=== PATIENT | female | born 1950 | race Caucasian/White ===

== ENCOUNTER 2020-04-28 10:56 | Emergency (ER) | payer OTHER ==
[2020-04-28] MEDS ORDERED: KETOROLAC 30 MG/ML INJ ONE (11:23)
[2020-04-28] MEDS ORDERED: CEFTRIAXONE/SWI 1gm 1 GM/10 ML SYR ONE (11:23)
[2020-04-28] MEDS ORDERED: MORPHINE 4 MG/ML SYR ONE (11:23)
[2020-04-28] MEDS ORDERED: ONDANSETRON 4 MG/2 ML VIAL ONE (11:23)
[2020-04-28] MEDS ORDERED: NA CHLORIDE 0.9% 1,000 ML ONE (11:23)
[2020-04-28 11:46] LABS: Absolute Lymphocytes (CBC) 1.3 K/uL (0.7-4.9); Basophils % 1.2 % (0-1.3); Hematocrit 31.7 % (36.0-45.0); Lymphocytes % 12.3 % (15.3-44.8); RBC Red Blood Cell Count 4.58 M/uL (3.86-4.86)
--- NOTE | 2020-04-28 11:57 | RAD REPORT ---
EXAM DESCRIPTION: CT - Stone Protocol - 04/28/2020 11:34 am CLINICAL HISTORY: Flank pain. Abd pain;Flank pain COMPARISON: No comparisons TECHNIQUE: Axial images were obtained without oral or IV contrast. Lack of contrast limits solid org an and vascular assessment. The [id number] spans the entirety of the system partially obscuring uppermost abdomen and lung bases. Coronal reformatted images were obtained and reviewed. All CT scans are performed using dose optimization technique as appropriate and may include automated exposure control or mA/KV adjustment according to patient size. FINDINGS: The lower lung soria are clear. 3.6 cm cyst is seen in the right lobe liver. No aggressive liver lesion or biliary dilatation. The sp florentin, pancreas, adrenal glands and left kidney are unremarkable. Right renal calculi are present with out hydronephrosis. The largest right-sided calculus measures 7 mm. Large ventral hernia is present containing large and small bowel without evidence of obstruction. No free air or abscess. No bowel obstruction. Sigmoid diverticulosis coli is noted without diverticul itis. The appendix is not identified as a discrete structure, however, no secondary findings of appen dicitis are identified. Lumbosacral spondylosis is present. IMPRESSION: Several right renal calculi are present without hydronephrosis. Large ventral hernia containing small and large bowel loops without evidence obstruction.
[2020-04-28 12:01] LABS: Urine Blood TRACE (NEG); Urine Glucose NEGATIVE (NEG); Urine Protein NEGATIVE (NEG); Urine Specific Gravity 1.025 (1.005-1.030)
[2020-04-28 12:02] LABS: ALT/SGPT 11 U/L (12-78); AST/SGOT 11 U/L (15-37); Albumin 3.1 g/dL (3.4-5.0); Alkaline Phosphatase 144 U/L (45-117); BUN Blood Urea Nitrogen 12 mg/dL (7-18); Bicarbonate 25 mmol/L (21-32); Bilirubin Direct < 0.1 mg/dL (0-0.2); Bilirubin Total 0.3 mg/dL (0.2-1.0); Glucose Level 111 mg/dL (74-106); Lipase 115 U/L (73-393); Potassium 3.3 mmol/L (3.5-5.1); Protein, Total 7.1 g/dL (6.4-8.2); Sodium Level 139 mmol/L (136-145)
[2020-04-28 13:18] LABS: Anisocytosis 1+; Blood Morphology Comment NOTED (NOT SEEN); Hypochromasia 1+; Platelet Estimate INCR; Urine White Blood Cell Casts OK
--- NOTE | 2020-04-28 13:40 | EDPHYS ---
Physician Documentation [facility] Name: Sejal Mcnally Age: 69 yrs Sex: Female : 1950 Arrival Date: 04/28/2020 Time: 11:00 Bed 5 Private MD: BARRY Physician Darrick Cage HPI: 04/28 11:06 This 69 yrs old Female presents to ER via Unassigned with complaints of right carrington flank pain. 11:06 The patient presents with abdominal pain right lower quadrant, abdominal distention in carrington the upper abdomen, in the lower abdomen. Onset: The symptoms/episode began/occurred this morning. The patient complains of pain in the right mid back and right low back. The pain radiates to the right mid back and right low back. Onset: The symptoms/episode began/occurred just prior to arrival, this morning. Modifying factors: The symptoms are alleviated by nothing. the symptoms are aggravated by nothing. Associated signs and symptoms: The patient has no apparent associated signs or symptoms. The symptoms radiate to the right flank. Associated signs and symptoms: none. Historical: - Allergies: 11:08 PENICILLINS; bp 11:08 Iodine; bp 11:08 Sulfa (Sulfonamide Antibiotics); bp - Home Meds: 11:08 None [Active]; bp - PMHx: 11:08 Multiple Sclerosis; bp - Immunization history:: Adult Immunizations up to date. - Social history:: Smoking status: unknown. - Family history:: not pertinent. ROS: 11:07 Constitutional: Negative for fever, chills, and weight loss, Eyes: Negative for injury, carrington pain, redness, and discharge, ENT: Negative for injury, pain, and discharge, Neck: Negative for injury, pain, and swelling, Cardiovascular: Negative for chest pain, palpitations, and edema, Respiratory: Negative for shortness of breath, cough, wheezing, and pleuritic chest pain, : Negative for injury, bleeding, discharge, and swelling, MS/Extremity: Negative for injury and deformity, Skin: Negative for injury, rash, and discoloration, Neuro: Negative for headache, weakness, numbness, tingling, and seizure, Psych: Negative for depression, anxiety, suicide ideation, homicidal ideation, and hallucinations, Allergy/Immunology: Negative for hives, rash, and allergies, Endocrine: Negative for neck swelling, polydipsia, polyuria, polyphagia, and marked weight changes. 11:07 Abdomen/GI: Positive for abdominal pain, nausea. 11:07 Back: Positive for flank pain, on the right. Exam: 11:07 Constitutional: This is a well developed, well nourished patient who is awake, alert, carrington and in no acute distress. Head/Face: Normocephalic, atraumatic. Eyes: Pupils equal round and reactive to light, extra-ocular motions intact. Lids and lashes normal. Conjunctiva and sclera are non-icteric and not injected. Cornea within normal limits. Periorbital areas with no swelling, redness, or edema. ENT: Nares patent. No nasal discharge, no septal abnormalities noted. Tympanic membranes are normal and external auditory canals are clear. Oropharynx with no redness, swelling, or masses, exudates, or evidence of obstruction, uvula midline. Mucous membranes moist. Neck: Trachea midline, no thyromegaly or masses palpated, and no cervical lymphadenopathy. Supple, full range of motion without nuchal rigidity, or vertebral point tenderness. No Meningismus. Chest/axilla: Normal chest wall appearance and motion. Nontender with no deformity. No lesions are appreciated. Cardiovascular: Regular rate and rhythm with a normal S1 and S2. No gallops, murmurs, or rubs. Normal PMI, no JVD. No pulse deficits. Respiratory: Lungs have equal breath sounds bilaterally, clear to auscultation and percussion. No rales, rhonchi or wheezes noted. No increased work of breathing, no retractions or nasal flaring. Abdomen/GI: Soft, non-tender, with normal bowel sounds. No distension or tympany. No guarding or rebound. No evidence of tenderness throughout. Back: No spinal tenderness. No costovertebral tenderness. Full range of motion. Skin: Warm, dry with normal turgor. Normal color with no rashes, no lesions, and no evidence of cellulitis. MS/ Extremity: Pulses equal, no cyanosis. Neurovascular intact. Full, normal range of motion. Neuro: Awake and alert, GCS 15, oriented to person, place, time, and situation. Cranial nerves II-XII grossly intact. Motor strength 5/5 in all extremities. Sensory grossly intact. Cerebellar exam normal. Normal gait. Psych: Awake, alert, with orientation to person, place and time. Behavior, mood, and affect are within normal limits. 11:07 Abdomen/GI: Inspection: distension, very large ventral hernia, no pain, soft. Vital Signs: 11:00 BP 110 / 60; Pulse 68; Resp 17; Temp 98.2; Pulse Ox 100% ; bp 12:49 BP 118 / 58; Pulse 84; Resp 16; Pulse Ox 98% ; bp 14:00 BP 121 / 61; Pulse 75; Resp 16; Temp 98.5; Pulse Ox 99% ; bp MDM: 11:08 Data reviewed: vital signs, nurses notes, lab test result(s), radiologic studies, CT carrington scan. 11:21 Patient medically screened. [facility] 13:34 Differential diagnosis: nephrolithiasis, pancreatitis, bowel obstruction, Mesenteric carrington ischemia or infarction, non-specific abd pain, Peptic Ulcer Disease, Ureterolithiasis. 04/28 11:05 Order name: Basic Metabolic Panel; Complete Time: 13:18 [facility] 04/28 11:05 Order name: CBC with Diff; Complete Time: 13:21 [facility] 04/28 11:05 Order name: Hepatic Function; Complete Time: 13:18 [facility] 04/28 11:05 Order name: Lipase; Complete Time: 13:18 [facility] 04/28 11:05 Order name: Urine Culture [facility] 04/28 11:32 Order name: Urine Dipstick--Ancillary (enter results); Complete Time: 13:18 04/28 11:05 Order name: IV Saline Lock; Complete Time: 11:29 [facility] 04/28 11:05 Order name: CT Stone Protocol; Complete Time: 13:18 [facility] 04/28 13:18 Order name: CBC Smear Scan; Complete Time: 13:21 [facility] 04/28 11:05 Order name: Labs collected and sent; Complete Time: 11:29 [facility] 04/28 11:05 Order name: Urine Dipstick-Ancillary (obtain specimen); Complete Time: 11:40 [facility] 04/28 13:26 Order name: PO challenge: orange juice; Complete Time: 13:26 [facility] Administered Medications: 11:25 Drug: NS 0.9% 1000 ml Route: IV; Rate: 1 bolus; Site: right wrist; bp 14:32 Follow up: IV Status: Infusion continued; IV Intake: 1000ml bp 11:25 Drug: TORadol 30 mg Route: IVP; Site: right wrist; bp 14:32 Follow up: Response: Pain is decreased bp 11:25 Drug: morphine 4 mg Route: IVP; Site: right wrist; bp 14:32 Follow up: Response: Pain is decreased bp 11:25 Drug: Zofran (Ondansetron) 4 mg Route: IVP; Site: right wrist; bp 14:31 Follow up: Response: No adverse reaction bp 11:25 Drug: Rocephin 1 grams Route: IV; Rate: per protocol; Site: right wrist; bp 14:31 Follow up: IV Status: Completed infusion; IV Intake: 20ml bp Disposition: 04/28/20 13:40 Discharged to Home. Impression: Ventral hernia without obstruction or gangrene, Low back pain, Multiple sclerosis, Obesity, unspecified, Anemia, unspecified. - Condition is Stable. - Discharge Instructions: Anemia, Nonspecific, Back Pain, Adult, Iron-Rich Diet, Hernia, Adult, Musculoskeletal Pain, Obesity, Adult, Back Pain, Adult, [id number], Multiple Sclerosis, Iron Deficiency Anemia, Adult, Reyo-ta-Wwen. - Prescriptions for Tylenol- Codeine #3 300-30 mg Oral Tablet - take 2 tablets by ORAL route every 6 hours As needed; 20 tablet. Motrin IB 200 mg Oral Tablet - take 1 tablet by ORAL route every 6 hours As needed as needed with food; 40 tablet. Cyclobenzaprine 5 mg Oral Tablet - take 1 tablet by ORAL route 3 times per day As needed; 15 tablet. - Medication Reconciliation Form, Thank You Letter, Antibiotic Education, Prescription Opioid Use form. - Follow up: Private Physician; When: 2 - 3 days; Reason: Recheck today's complaints, Continuance of care, Re-evaluation by your physician. Follow up: Donavan Galeano MD; When: 2 - 3 days; Reason: Recheck today's complaints, Re-evaluation by your physician. - Problem is new. - Symptoms have improved. Signatures: Dispatcher [employer] EDDarrick Freitas MD MD cha Peltier, Brian, RN RN bp Corrections: (The following items were deleted from the chart) 13:44 13:40 04/28/2020 13:40 Discharged to Home. Impression: Ventral hernia without carrington obstruction or gangrene; Low back pain; Multiple sclerosis; Obesity, unspecified; Anemia, unspecified. Condition is Stable. Forms are Medication Reconciliation Form, Thank You Letter, Antibiotic Education, Prescription Opioid Use. Follow up: Private Physician; When: 2 - 3 days; Reason: Recheck today's complaints, Continuance of care, Re-evaluation by your physician. Problem is new. Symptoms have improved. carrington 14:33 13:44 04/28/2020 13:40 Discharged to Home. Impression: Ventral hernia without bp obstruction or gangrene; Low back pain; Multiple sclerosis; Obesity, unspecified; Anemia, unspecified. Condition is Stable. Discharge Instructions: Anemia, Nonspecific, Back Pain, Adult, Hernia, Adult, Musculoskeletal Pain, Obesity, Adult, Back Pain, Adult, [id number], Multiple Sclerosis. Prescriptions for Tylenol-Codeine #3 300-30 mg Oral Tablet - take 2 tablets by ORAL route every 6 hours As needed; 20 tablet, Motrin IB 200 mg Oral Tablet - take 1 tablet by ORAL route every 6 hours As needed as needed with food; 40 tablet, Cyclobenzaprine 5 mg Oral Tablet - take 1 tablet by ORAL route 3 times per day As needed; 15 tablet. and Forms are Medication Reconciliation Form, Thank You Letter, Antibiotic Education, Prescription Opioid Use. Follow up: Private Physician; When: 2 - 3 days; Reason: Recheck today's complaints, Continuance of care, Re-evaluation by your physician. Follow up: Donavan Galeano; When: 2 - 3 days; Reason: Recheck today's complaints, Re-evaluation by your physician. Problem is new. Symptoms have improved. [facility]
--- NOTE | 2020-04-28 13:40 | ER ---
Nurse's Notes [facility] Name: Sejal Mcnally Age: 69 yrs Sex: Female : 1950 Arrival Date: 04/28/2020 Time: 11:00 Bed 5 Private MD: Diagnosis: Ventral hernia without obstruction or gangrene;Low back pain;Multiple sclerosis;Obesity, unspecified;Anemia, unspecified Presentation: 04/28 11:00 Chief complaint: EMS states: SPONTANEOUS R FLANK PAIN SINCE Y/D, DENIES TRAUMA OR bp DYSURIA. Coronavirus screen: At this time, the client does not indicate any symptoms associated with coronavirus-19. Ebola Screen: No symptoms or risks identified at this time. Initial Sepsis Screen: Does the patient meet any 2 criteria? No. Patient's initial sepsis screen is negative. Does the patient have a suspected source of infection? No. Patient's initial sepsis screen is negative. Risk Assessment: Do you want to hurt yourself or someone else? Patient reports no desire to harm self or others. Onset of symptoms is unknown. 11:00 Method Of Arrival: EMS: [facility] bp 11:00 Acuity: NADINE 3 bp Triage Assessment: 11:08 General: Appears distressed, uncomfortable, obese, Behavior is appropriate for age, bp agitated, anxious, crying. Pain: Complains of pain in right low back and right mid back. EENT: No deficits noted. Neuro: No deficits noted. Cardiovascular: No deficits noted. Respiratory: No deficits noted. GI: No signs and/or symptoms were reported involving the gastrointestinal system. : Reports pain in right flank(s). Derm: No deficits noted. Musculoskeletal: No deficits noted. Historical: - Allergies: 11:08 PENICILLINS; bp 11:08 Iodine; bp 11:08 Sulfa (Sulfonamide Antibiotics); bp - Home Meds: 11:08 None [Active]; bp - PMHx: 11:08 Multiple Sclerosis; bp - Immunization history:: Adult Immunizations up to date. - Social history:: Smoking status: unknown. - Family history:: not pertinent. Screenin:09 Abuse screen: Denies threats or abuse. Denies injuries from another. Nutritional bp screening: No deficits noted. Tuberculosis screening: No symptoms or risk factors identified. Fall Risk None identified. Assessment: 11: General: SEE TRIAGE NOTE. bp 12:49 Reassessment: PT RETURNED FROM CT. ALL CURRENT ORDERS COMPLETED, RESULTS PENDING. bp 14:24 Reassessment: PT D/C HOME VIA W/C, DX WITH MS AND LUMBAR PAIN. bp Vital Signs: 11:00 BP 110 / 60; Pulse 68; Resp 17; Temp 98.2; Pulse Ox 100% ; bp 12:49 BP 118 / 58; Pulse 84; Resp 16; Pulse Ox 98% ; bp 14:00 BP 121 / 61; Pulse 75; Resp 16; Temp 98.5; Pulse Ox 99% ; bp ED Course: 11:00 Patient arrived in ED. carrington 11:01 Darrick Cage MD is Attending Physician. carrington 11:06 Esteban Tomas, RICARDO is Primary Nurse. bp 11:07 Triage completed. bp 11:08 Arm band placed on. bp 11:09 Patient has correct armband on for positive identification. Bed in low position. Call bp light in reach. Side rails up X2. 11:25 Inserted saline lock: 22 gauge in right wrist, using aseptic technique. Blood collected.bp 11:33 CT Stone Protocol In Process Unspecified. EDMS 13:44 Donavan Galeano MD is Referral Physician. carrington 14:24 No provider procedures requiring assistance completed. IV discontinued, bleeding bp controlled, No redness/swelling at site. Pressure dressing applied. Administered Medications: 11:25 Drug: NS 0.9% 1000 ml Route: IV; Rate: 1 bolus; Site: right wrist; bp 14:32 Follow up: IV Status: Infusion continued; IV Intake: 1000ml bp 11:25 Drug: TORadol 30 mg Route: IVP; Site: right wrist; bp 14:32 Follow up: Response: Pain is decreased bp 11:25 Drug: morphine 4 mg Route: IVP; Site: right wrist; bp 14:32 Follow up: Response: Pain is decreased bp 11:25 Drug: Zofran (Ondansetron) 4 mg Route: IVP; Site: right wrist; bp 14:31 Follow up: Response: No adverse reaction bp 11:25 Drug: Rocephin 1 grams Route: IV; Rate: per protocol; Site: right wrist; bp 14:31 Follow up: IV Status: Completed infusion; IV Intake: 20ml bp Intake: 14:31 IV: 20ml; Total: 20ml. bp 14:32 IV: 1000ml; Total: 1020ml. bp Outcome: 13:40 Discharge ordered by . carrington 14:24 Discharged to home via wheelchair. bp 14:24 Condition: stable 14:24 Discharge instructions given to patient, Instructed on discharge instructions, follow up and referral plans. medication usage, Demonstrated understanding of instructions, follow-up care, medications, Prescriptions given X 2. 14:33 Patient left the ED. bp Signatures: Dispatcher [employer] EDWY Darrick Cage MD MD cha Peltier, Brian, RN RN bp
[2020-04-28 14:46] VITALS: BP 121/61; TEMP 98.5; O2SAT 99
== END 2020-04-28 14:33 | disposition home or self-care (01) ==
LOC: ER 10:56
DX: K43.9 Ventral hernia without obstruction or gangrene (principal); E66.9 Obesity, unspecified; D64.9 Anemia, unspecified; G35 Multiple sclerosis; Z88.0 Allergy status to penicillin; Z88.2 Allergy status to sulfonamides; Z91.048 Other nonmedicinal substance allergy status
CPT/HCPCS: 87088; 85025; 87086; 80048; 36415; 80076; 81003; 83690; 76377; 74176; J0696; J7030; J2405; 96365; 96366; 96375; 99284

== ENCOUNTER 2022-10-11 16:37 | Emergency (ER) | payer OTHER ==
--- NOTE | 2022-10-11 18:05 | RAD REPORT ---
EXAM DESCRIPTION: RAD - Chest Single View - 10/11/2022 5:43 pm CLINICAL HISTORY: Cough COMPARISON: Stone Protocol dated 04/28/2020 FINDINGS: Lines: None. Lungs: No evidence of edema or pneumonia. Pleural: No significant pleural effusions or pneumothorax. Cardiac: The heart size is within normal limits. Mediastinum: Within normal limits. Bones: No acute fractures. Remote left-sided rib fractures. Other: None IMPRESSION: No acute cardiopulmonary disease.
--- NOTE | 2022-10-11 18:18 | ER ---
Nurse's Notes [facility] Name: Sejal Mcnally Age: 72 yrs Sex: Female : 1950 Arrival Date: 10/11/2022 Time: 16:38 Bed 11 Private MD: CHRISTINA ALICEA Diagnosis: Allergic rhinitis, unspecified Presentation: 10/11 16:49 Chief complaint: Patient states: runny nose, slight cough, itchy eyes that began 3 days aa5 ago. Denies SOB, reports body aches. Coronavirus screen: cough unrelated to allergies, runny nose. Ebola Screen: Patient denies travel to an Ebola-affected area in the 21 days before illness onset. Initial Sepsis Screen: Does the patient meet any 2 criteria? HR > 90 bpm. Does the patient have a suspected source of infection? No. Patient's initial sepsis screen is negative. Risk Assessment: Do you want to hurt yourself or someone else? Patient reports no desire to harm self or others. Onset of symptoms was September 2022. 16:49 Method Of Arrival: Wheelchair aa5 16:49 Acuity: NADINE 3 aa5 Historical: - Allergies: 16:50 Iodine; aa5 16:50 PENICILLINS; aa5 16:50 Sulfa (Sulfonamide Antibiotics); aa5 - PMHx: 16:50 Multiple Sclerosis; aa5 16:50 Abdominal Hernia; aa5 - Immunization history:: Adult Immunizations unknown. - Social history:: Smoking status: Patient reports the use of cigarette tobacco products, smokes one pack cigarettes per day. Screenin:33 [facility] ED Fall Risk Assessment (Adult) History of falling in the last 3 months, jl7 including since admission No falls in past 3 months (0 pts) Confusion or Disorientation No (0 pts) Intoxicated or Sedated No (0 pts) Impaired Gait No (0 pts) Mobility Assist Device Used No (0 pt) Altered Elimination No (0 pt) Score/Fall Risk Level 0 - 2 = Low Risk Oriented to surroundings. Abuse screen: Denies threats or abuse. Denies injuries from another. Nutritional screening: No deficits noted. Tuberculosis screening: No symptoms or risk factors identified. Assessment: 16:48 Reassessment: PT refused covid swab . aa5 18:10 Reassessment: Pt refused covid swab, ERP notified. jl7 Vital Signs: 16:50 BP 116 / 63; Pulse 97; Resp 18 S; Temp 98.7(TE); Pulse Ox 100% on R/A; aa5 ED Course: 16:38 Patient arrived in ED. am2 16:39 CHRISTINA ALICEA is Private Physician. am2 16:39 [facility] kb 16:39 Timo Echols MD is Attending Physician. kb 16:49 Arm band placed on. aa5 16:50 Triage completed. aa5 17:45 Chest Single View XRAY In Process Unspecified. EDMS 18:33 Anita Adame, RN is Primary Nurse. jl7 18:33 Patient has correct armband on for positive identification. jl7 18:33 No provider procedures requiring assistance completed. Patient did not have IV access jl7 during this emergency room visit. Administered Medications: No medications were administered Medication: 18:33 VIS not applicable for this client. jl7 Outcome: 18:18 Discharge ordered by MD. kb 18:33 Discharged to home ambulatory. jl7 18:33 Condition: stable 18:33 Discharge instructions given to patient, Instructed on discharge instructions, follow up and referral plans. Demonstrated understanding of instructions, follow-up care. 18:34 Patient left the ED. jl7 Signatures: Dispatcher [employer] EDIL Hodan Umana FNP-C FNP-Ckb Calderon, Audri, RN RN aa5 Anita Adame, RN RN jl7 Joselyn Washington am2 Corrections: (The following items were deleted from the chart) 16:51 16:49 Acuity: NADINE 4 aa5 aa5
--- NOTE | 2022-10-11 18:18 | EDPHYS ---
Physician Documentation [facility] Name: Sejal Mcnally Age: 72 yrs Sex: Female : 1950 Arrival Date: 10/11/2022 Time: 16:38 Bed 11 Private MD: CHRISTINA ALICEA ED Physician Timo Echols HPI: 10/11 17:16 This 72 yrs old Female presents to ER via Wheelchair with complaints of Cough, Nasal kb Drainage, Eye Problem. 17:16 The patient or guardian reports cough, that is intermittent, described as mild. Onset: kb The symptoms/episode began/occurred 3 day(s) ago. Severity of symptoms: At their worst the symptoms were very mild, in the emergency department the symptoms are unchanged. Modifying factors: The symptoms are alleviated by nothing, the symptoms are aggravated by nothing. Associated signs and symptoms: Pertinent positives: rhinorrhea, Pertinent negatives: chest pain, diarrhea, ear ache, fever, nausea, sore throat, vomiting. The patient has not experienced similar symptoms in the past. The patient has not recently seen a physician. Pt reports runny nose, itchy eyes, bodyaches, malaise and slight cough for 3 days. . Historical: - Allergies: 16:50 Iodine; aa5 16:50 PENICILLINS; aa5 16:50 Sulfa (Sulfonamide Antibiotics); aa5 - PMHx: 16:50 Multiple Sclerosis; aa5 16:50 Abdominal Hernia; aa5 - Immunization history:: Adult Immunizations unknown. - Social history:: Smoking status: Patient reports the use of cigarette tobacco products, smokes one pack cigarettes per day. ROS: 17:16 Constitutional: Negative for fever, chills, and weight loss. kb 17:16 Eyes: Positive for itching. 17:16 ENT: Positive for rhinorrhea. 17:16 Respiratory: Positive for cough. 17:16 All other systems are negative. 17:17 Constitutional: Positive for body aches, malaise. kb Exam: 17:16 Constitutional: This is a well developed, well nourished patient who is awake, alert, kb and in no acute distress. Head/Face: Normocephalic, atraumatic. ENT: Moist Mucous membranes Cardiovascular: Regular rate and rhythm with a normal S1 and S2. No gallops, murmurs, or rubs. No pulse deficits. Respiratory: Respirations even and unlabored. No increased work of breathing. Talking in full sentences Skin: Warm, dry with normal turgor. Normal color. MS/ Extremity: Pulses equal, no cyanosis. Neurovascular intact. Full, normal range of motion. Neuro: Awake and alert, GCS 15, oriented to person, place, time, and situation. Moves all extremities. Normal gait. Vital Signs: 16:50 BP 116 / 63; Pulse 97; Resp 18 S; Temp 98.7(TE); Pulse Ox 100% on R/A; aa5 MDM: 16:48 Patient medically screened. kb 17:16 Data reviewed: vital signs, nurses notes. kb 18:14 Differential Diagnosis: Influenza Upper Respiratory Infection Allergic Rhinitis kb Pneumonia. I considered the following discharge prescriptions or medication management in the emergency department I discussed and recommended Over The Counter medications, Antibiotics: At this time antibiotics are not recommended. Counseling: I had a detailed discussion with the patient and/or guardian regarding: the historical points, exam findings, and any diagnostic results supporting the discharge/admit diagnosis, radiology results, the need for outpatient follow up, a family practitioner, to return to the emergency department if symptoms worsen or persist or if there are any questions or concerns that arise at home. 18:17 ED course: Pt refused covid/flu test. kb 10/11 16:48 Order name: Chest Single View XRAY; Complete Time: 18:14 kb Administered Medications: No medications were administered Disposition Summary: 10/11/22 18:18 Discharge Ordered Location: Home kb Condition: Stable kb Diagnosis - Allergic rhinitis, unspecified kb Followup: kb - With: Emergency Department - When: As needed - Reason: Worsening of condition Followup: kb - With: Private Physician - When: 2 - 3 days - Reason: Recheck today's complaints, Continuance of care, Re-evaluation by your physician Discharge Instructions: - Discharge Summary Sheet kb - Allergic Rhinitis, Adult, [id number] kb Forms: - Medication Reconciliation Form kb - Thank You Letter kb - Antibiotic Education kb - Prescription Opioid Use kb Signatures: Dispatcher [employer] EDMS Hodan Umana, BETTYC Ashely Isabel, RN RN aa5 Corrections: (The following items were deleted from the chart) 17:17 17:16 Pt reports runny nose, itchy eyes and slight cough for 3 days. . kb kb
[2022-10-11 18:45] VITALS: BP 116/63; TEMP 98.7; O2SAT 100
== END 2022-10-11 18:34 | disposition home or self-care (01) ==
LOC: ER 16:37
DX: J30.9 Allergic rhinitis, unspecified (principal); F17.210 Nicotine dependence, cigarettes, uncomplicated
CPT/HCPCS: 71045

== ENCOUNTER 2024-03-09 08:21 | Emergency (ER) | payer OTHER ==
[2024-03-09] MEDS ORDERED: KETOROLAC 30 MG/ML INJ ONE (08:30)
[2024-03-09] MEDS ORDERED: ACETAMINOPHEN 500 MG TAB ONE (08:30)
--- NOTE | 2024-03-09 10:08 | RAD REPORT ---
EXAM DESCRIPTION: CT - Head C Spine Mpr Wo Con - 03/09/2024 9:36 am CLINICAL HISTORY: Head and neck injury status post fall. Head and neck pain COMPARISON: None. TECHNIQUE: Computed axial tomography of the head and cervical spine was obtained. Sagittal and coronal reconstruction was performed. All CT scans are performed using dose optimization technique as appropriate and may include automated exposure control or mA/KV adjustment according to patient size. FINDINGS: Due to technical issues with CT the exam could not be dictated until now. An intracranial bleed is not seen. The ventricles are normal in caliber. No significant hypodensity within the brain. An extra-axial fluid collection is not noted. Fluid within the visualized sinuses and mastoids is not seen A cervical fracture is not visualized. No dislocation is noted. Slight anterior subluxation C7 on T1 IMPRESSION: No acute intracranial abnormality is seen. A cervical fracture is not visualized. If the patient continues to have symptoms to suggest intracranial /spinal cord pathology then MRI wou ld be recommended
--- NOTE | 2024-03-09 10:15 | RAD REPORT ---
EXAM DESCRIPTION: CTSpine Lumbar Wo Con03/09/2024 9:36 am CLINICAL HISTORY: Back pain status post fall COMPARISON: None TECHNIQUE: Computed axial tomography lumbar spine was obtained with coronal and sagittal reconstruct ion. All CT scans are performed using dose optimization technique as appropriate and may include automated exposure control or mA/KV adjustment according to patient size. FINDINGS: Due to technical issues with CT the exam could not be dictated until now. No fracture is seen No dislocation Mild anterior subluxation L4 on L5. Mild posterior subluxation of L1 on L2. Spondylosis most marked L3-4 and L4-5 [id number] scoliosis 7 millimeter calculus right renal pelvis. Mild right hydronephrosis IMPRESSION: Negative for a lumbar fracture. 7 millimeter calculus right renal pelvis. Mild right hydronephrosis
--- NOTE | 2024-03-09 10:22 | RAD REPORT ---
EXAM DESCRIPTION: CT - Pelvis Wo Cont - 03/09/2024 9:36 am CLINICAL HISTORY: Pelvic pain status post fall COMPARISON: None. TECHNIQUE: Computed axial tomography of the pelvis was obtained. Coronal and sagittal reconstruction performed All CT scans are performed using dose optimization technique as appropriate and may include automated exposure control or mA/KV adjustment according to patient size. FINDINGS: Due to technical issues with CT the exam could not be dictated until now 7 millimeter calculus right renal pelvis. Mild right hydronephrosis No fracture or dislocation is seen. No significant hip joint effusion. The rectum is distended with stool. A large right ventral hernia contains bowel IMPRESSION: No fracture seen. If patient continues to have clinical symptoms to suggest an occult fracture MRI would be recommended
--- NOTE | 2024-03-09 10:23 | RAD REPORT ---
EXAM DESCRIPTION: Bola Single View03/09/2024 8:46 am CLINICAL HISTORY: Chest pain COMPARISON: 2022 FINDINGS: The lungs appear clear of acute infiltrate. The heart is borderline enlarged. Marked scoliosis is present IMPRESSION: No acute abnormalities displayed
--- NOTE | 2024-03-09 10:27 | EDPHYS ---
Physician Documentation [facility] Name: Sejal Mcnally Age: 73 yrs Sex: Female : 1950 Arrival Date: 03/09/2024 Time: 08:21 Bed 14 Private MD: ED Physician Eric Su HPI: 03/09 08:59 This 73 yrs old Female presents to ER via EMS with complaints of Fall Injury. ec2 08:59 Patient arrives today for evaluation after a fall. States that she was walking ec2 subsequently tripped and fell. Complaining of chest wall pain, head and neck and low back pain. No LOC, not on blood thinners.. Historical: - Allergies: 08:25 Iodine; mb9 08:25 PENICILLINS; mb9 08:25 Sulfa (Sulfonamide Antibiotics); mb9 - Home Meds: 08:25 Aspirin Oral [Active]; mb9 - PMHx: 08:25 abdominal hernia; Multiple Sclerosis; mb9 - PSHx: 08:25 None; mb9 - Immunization history:: Adult Immunizations up to date. - Infectious Disease History:: Denies. - Social history:: Smoking status: Patient reports the use of cigarette tobacco products. ROS: 08:59 Constitutional: as per hpi ec2 Exam: 08:59 Constitutional: GEN: No acute distress HEENT: -Head: no deformities -Eyes: EOMI CV: ec2 regular rate LUNGS: no respiratory distress ABD: non-tender SKIN: no wounds appreciated MSK: No C/T/L spine deformities, C and L-spine TTP, no deformities or crepitus appreciated. RUE w/o bony deformity LUE w/o bony deformity RLE w/o bony deformity LLE w/o bony deformity. Chest wall: Chest wall reproducible with TTP NEURO: moves all extremities equally, GCS 15 (E4, V5, M6) Vital Signs: 08:26 BP 118 / 98; Pulse 71; Resp 18; Pulse Ox 100% ; Weight 65.77 kg; Height 5 ft. 2 in. ; mb9 Pain 10/10; 10:34 BP 120 / 84; Pulse 74; Resp 16; Pulse Ox 100% on R/A; mb9 08:26 Body Mass Index 26.52 (65.77 kg, 157.48 cm) mb9 08:26 Pain Scale: Adult mb9 MDM: 08:25 Patient medically screened. ec2 08:59 Data reviewed: vital signs. ED course: Patient arrives today for evaluation after ec2 ground-level fall. Examination remarkable for MSK findings as above. Will obtain CT scan of the head, C-spine and L-spine as well as pelvis. Will also obtain chest x-ray.. 10:26 ED course: Chest x-ray independently reviewed and interpreted by me, shows no acute ec2 intrathoracic process. Patient is malrotated, scoliosis noted. CT of the head and C-spine show no acute traumatic process, CT of the lumbar spine and pelvis showed no traumatic pathology. 7 mm calculus of the right renal pelvis noted. Patient has not been having any urinary complaints and does not have any pain in these locations. I will refer the patient to urology to follow-up expectantly. . 11:01 ED course: MDM: Differential diagnosis as documented above in ED course; All lab tests ec2 ordered and reviewed as documented above; Independent interpretation of tests: imaging as above; History gathered from independent historian: Yes, EMS . 03/09 08:26 Order name: CXR XRAY; Complete Time: 10:24 ec2 03/09 08:26 Order name: CT Head C Spine; Complete Time: 10:24 ec2 03/09 08:26 Order name: CT Lumbar Spine Wo Con; Complete Time: 10:24 ec2 03/09 08:26 Order name: CT Pelvis wo Cont; Complete Time: 10:24 ec2 03/09 08:26 Order name: Contact Isolation; Complete Time: 08:29 ec2 Administered Medications: 08:36 Drug: Ketorolac IM 30 mg IM once Route: IM; Site: right deltoid; mb9 10:12 Follow up: Response: No adverse reaction mb9 08:36 Drug: Acetaminophen PO 1000 mg PO once Route: PO; mb9 10:12 Follow up: Response: No adverse reaction mb9 Disposition Summary: 03/09/24 10:26 Discharge Ordered Notes: Location: Home ec2 Condition: Stable ec2 Diagnosis - Fall on same level, unspecified ec2 - Chest Wall Pain ec2 - Calculus of kidney ec2 Followup: ec2 - With: Red Bermeo MD - When: - Reason: Recheck today's complaints Discharge Instructions: - Discharge Summary Sheet ec2 - Kidney Stones ec2 - Fall Prevention in the Home, Adult, [id number] ec2 Forms: - Medication Reconciliation Form ec2 - Antibiotic Education ec2 - Prescription Opioid Use ec2 - Patient Portal Instructions ec2 - Leadership Thank You Letter ec2 Prescriptions: - acetaminophen-codeine 300-15 mg Oral tablet - take 1 tablet ORAL route every 8 hours; 10 tablet; Refills: 0, Product ec2 Selection Permitted Signatures: Dispatcher [employer] Alcira Farrar RN RN mb9 Eric Su MD MD ec2 Corrections: (The following items were deleted from the chart) 08: 08:27 Head C Spine MPR Wo Con+CT.RAD.BRZ ordered. EDMS EDMS 08: 08:27 Spine Lumbar Wo Con+CT.RAD.BRZ ordered. EDMS EDMS 08: 08:27 Pelvis Wo Cont+CT.RAD.BRZ ordered. EDMS EDMS
--- NOTE | 2024-03-09 10:27 | ER ---
Nurse's Notes [facility] Name: Sejal Mcnally Age: 73 yrs Sex: Female : 1950 Arrival Date: 03/09/2024 Time: 08:21 Bed 14 Private MD: Diagnosis: Fall on same level, unspecified;Chest Wall Pain;Calculus of kidney Presentation: 03/09 08:26 Chief complaint: EMS states: "toned out for chest wall tenderness after fall from 9 standing last night. Pt denies LOC, did not hit head, and does not take blood thinners.". Coronavirus screen: At this time, the client does not indicate any symptoms associated with coronavirus-19. Ebola Screen: No symptoms or risks identified at this time. Initial Sepsis Screen: Does the patient meet any 2 criteria? No. Patient's initial sepsis screen is negative. Does the patient have a suspected source of infection? No. Patient's initial sepsis screen is negative. Risk Assessment: Do you want to hurt yourself or someone else? Patient reports no desire to harm self or others. Onset of symptoms was March 09, 2024. 08:26 Method Of Arrival: EMS: [facility] 9 08:26 Acuity: NADINE 4 mb9 Triage Assessment: 08:28 General: Appears uncomfortable, Behavior is cooperative. Pain: Complains of pain in mb9 chest Pain does not radiate. Pain currently is 10 out of 10 on a pain scale. Quality of pain is described as throbbing, Pain began 1 day ago. Is intermittent. EENT: No signs and/or symptoms were reported regarding the EENT system. Neuro: [place] Agitation-Sedation Scale (RASS): 0 - Alert and Calm Level of Consciousness is awake, alert, obeys commands, Oriented to person, place, time, situation, Appropriate for age. Cardiovascular: Heart tones S1 S2 present Patient's skin is warm and dry. Respiratory: Airway is patent Respiratory effort is even, unlabored, Respiratory pattern is regular, symmetrical, Breath sounds are clear bilaterally. GI: Abdomen is hernia noted to right side of abdomen. : No signs and/or symptoms were reported regarding the genitourinary system. Derm: Skin is pink, warm \\T\\ dry. Musculoskeletal: Range of motion: intact in all extremities. Historical: - Allergies: 08:25 Iodine; mb9 08:25 PENICILLINS; mb9 08:25 Sulfa (Sulfonamide Antibiotics); mb9 - Home Meds: 08:25 Aspirin Oral [Active]; mb9 - PMHx: 08:25 abdominal hernia; Multiple Sclerosis; mb9 - PSHx: 08:25 None; mb9 - Immunization history:: Adult Immunizations up to date. - Infectious Disease History:: Denies. - Social history:: Smoking status: Patient reports the use of cigarette tobacco products. Screenin:29 [facility] ED Fall Risk Assessment (Adult) History of falling in the last 3 months, mb9 including since admission Yes- single mechanical fall (1 pt) Confusion or Disorientation No (0 pts) Intoxicated or Sedated No (0 pts) Impaired Gait No (0 pts) Mobility Assist Device Used No (0 pt) Altered Elimination No (0 pt) Score/Fall Risk Level 0 - 2 = Low Risk Oriented to surroundings, Maintained a safe environment, Educated pt \\T\\ family on fall prevention, incl call for assistance when getting out of bed. Abuse screen: Denies threats or abuse. Nutritional screening: No deficits noted. Tuberculosis screening: No symptoms or risk factors identified. Assessment: 08:29 Reassessment: see triage assessment. mb9 10:00 Reassessment: No changes from previously documented assessment. Patient and/or family mb9 updated on plan of care and expected duration. Pain level reassessed. Patient is alert, oriented x 3, equal unlabored respirations, skin warm/dry/pink. 10:33 Reassessment: discharge pending ride home. mb9 Vital Signs: 08:26 BP 118 / 98; Pulse 71; Resp 18; Pulse Ox 100% ; Weight 65.77 kg; Height 5 ft. 2 in. ; mb9 Pain 10/10; 10:34 BP 120 / 84; Pulse 74; Resp 16; Pulse Ox 100% on R/A; mb9 08:26 Body Mass Index 26.52 (65.77 kg, 157.48 cm) mb9 08:26 Pain Scale: Adult mb9 ED Course: 08:25 Patient arrived in ED. mb9 08:25 Eric Su MD is Attending Physician. ec2 08:25 Arm band placed on. mb9 08:28 Triage completed. mb9 08:29 Placed in gown. Bed in low position. Call light in reach. Side rails up X 1. Provided mb9 Education on: press call light if needing anything. Client placed on continuous cardiac and pulse oximetry monitoring. NIBP monitoring applied. 08:29 No provider procedures requiring assistance completed. mb9 08:30 Door closed. Noise minimized. Lights dimmed. Warm blanket given. aw1 08:31 Assisted with bedpan. aw1 08:36 Alcira Valiente, RN is Primary Nurse. mb9 08:48 CXR XRAY In Process Unspecified. EDMS 09:[address] via stretcher. mb9 09:37 CT Head C Spine In Process Unspecified. EDMS 09:38 CT Lumbar Spine Wo Con In Process Unspecified. EDMS 09:38 CT Pelvis wo Cont In Process Unspecified. EDMS 09:[address] back from [address]. mb9 10:26 Red Bermeo MD is Referral Physician. ec2 10:33 Patient did not have IV access during this emergency room visit. mb9 Administered Medications: 08:36 Drug: Ketorolac IM 30 mg IM once Route: IM; Site: right deltoid; mb9 10:12 Follow up: Response: No adverse reaction mb9 08:36 Drug: Acetaminophen PO 1000 mg PO once Route: PO; mb9 10:12 Follow up: Response: No adverse reaction mb9 Medication: 08:29 VIS not applicable for this client. mb9 Outcome: 10:26 Discharge ordered by . ec2 10:42 Condition: stable mb9 10:42 Instructed on discharge instructions, follow up and referral plans. Demonstrated understanding of instructions, follow-up care, medications, Prescriptions given X 1, 10:57 Discharged to home via wheelchair, with family, hb 10:57 Patient left the ED. hb Signatures: Dispatcher [employer] Mercy Lisa RN RN hb Breneman, Mary Beth, RICARDO RN [email or web address] Ana Rosa Dillon aw1 Eric Su MD MD ec2
[2024-03-09 11:20] VITALS: BP 120/84; O2SAT 100
== END 2024-03-09 10:57 | disposition home or self-care (01) ==
LOC: ER 08:21
DX: R07.89 Other chest pain (principal); N20.0 Calculus of kidney; W18.30XA Fall on same level, unspecified, initial encounter; M54.2 Cervicalgia
CPT/HCPCS: 70450; 71045; 72125; 72131; 72192; 96372; 99285

== ENCOUNTER 2024-03-11 04:54 | Observation (INO) | payer OTHER ==
[2024-03-11 07:02] LABS: Specific Gravity 1.017 (1.005-1.030); Urine Bilirubin NEGATIVE (Negative); Urine Blood 1+ (Negative); Urine Clarity Extremely Turbid (Clear); Urine Color Yellow (Yellow); Urine Glucose NEGATIVE (Negative); Urine Ketones NEGATIVE (Negative); Urine Microscopic Reflex YN ORDER UMIC; Urine Nitrite 2+ (Negative); Urine Protein 1+ (Negative); Urine Urobilinogen Normal (Normal); Urine WBC >50 /HPF (<5); Urine pH 5.5 (5.0-7.0)
[2024-03-11 07:03] LABS: Urine Bacteria 20-50 /HPF (<20); Urine Culture Reflex Order REFLEXED; Urine Mucus 1+ /HPF (None Seen); Urine WBC Clump Few /HPF (None Seen); Urine White Blood Cell Casts 0-5 /LPF (None Seen)
--- NOTE | 2024-03-11 07:05 | ER ---
Nurse's Notes [facility] Name: Sejal Mcnally Age: 73 yrs Sex: Female : 1950 Arrival Date: 03/11/2024 Time: 04:54 Bed 16 Private MD: Diagnosis: Fall on same level, unspecified;Acute cystitis without hematuria;Multiple fractures of ribs, right side-3,5,6,7,8 \T\ 9th;Dehydration;Weakness;Atelectasis Presentation: 03/11 04:59 Chief complaint: Patient states: she fell 2 days ago \T\ has pain in her chest since. lc8 states she was given pain medication but it does not work. Coronavirus screen: Client denies travel out of the [place] in the last 14 days. Ebola Screen: Patient negative for fever greater than or equal to 101.5 degrees Fahrenheit, and additional compatible Ebola Virus Disease symptoms Patient denies exposure to infectious person. Patient denies travel to an Ebola-affected area in the 21 days before illness onset. Initial Sepsis Screen: Does the patient meet any 2 criteria? No. Patient's initial sepsis screen is negative. Does the patient have a suspected source of infection? No. Patient's initial sepsis screen is negative. Risk Assessment: Do you want to hurt yourself or someone else? Patient reports no desire to harm self or others. Onset of symptoms was March 09, 2024. 04:59 Method Of Arrival: EMS: [facility] 04:59 Acuity: NADINE 3 lc8 Triage Assessment: 05:11 General: Appears uncomfortable. lc8 Historical: - Allergies: 05:11 Iodine; lc8 05:11 PENICILLINS; lc8 05:11 Sulfa (Sulfonamide Antibiotics); lc8 - Home Meds: 06:12 Aspirin Oral [Active]; lc8 - PMHx: 05:11 abdominal hernia; Multiple Sclerosis; lc8 - Immunization history:: Adult Immunizations unknown. - Infectious Disease History:: Denies. - Social history:: Smoking status: Patient denies any tobacco usage or history of. - Family history:: not pertinent. Screenin:00 [facility] ED Fall Risk Assessment (Adult) History of falling in the last 3 months, lc8 including since admission Yes- single mechanical fall (1 pt). 05:00 [facility] ED Fall Risk Assessment (Adult) History of falling in the last 3 months, lc8 including since admission Confusion or Disorientation No (0 pts) Intoxicated or Sedated No (0 pts) Impaired Gait Yes (1 pt) Mobility Assist Device Used Yes (1 pt) Altered Elimination No (0 pt) Score/Fall Risk Level 3 or more points = High Risk Oriented to surroundings, Maintained a safe environment, Hourly rounding (assess needs \T\ fall precautionary measures) done. Abuse screen: Denies threats or abuse. Denies injuries from another. Nutritional screening: No deficits noted. Tuberculosis screening: No symptoms or risk factors identified. Assessment: 05:00 General: Appears uncomfortable, Behavior is cooperative. lc8 05:00 Pain: Complains of pain in chest. Neuro: Level of Consciousness is awake, alert, obeys [facility] commands, Oriented to person, place, time. Cardiovascular: Capillary refill < 3 seconds Parent/caregiver reports patient has had chest pain, since a fall 2 days ago. 06:20 Reassessment: provider made aware unsuccessful at multiple iv attempts by multiple [facility] nurses. 06:30 Reassessment: provider to bedside to attempt to gain iv access. 8 06:58 Reassessment: attempt made to call pt's son Greg. lc8 07:43 General: Appears in no apparent distress. uncomfortable, Behavior is cooperative, ph anxious. Pain: Complains of pain in chest. Neuro: Level of Consciousness is awake, alert, obeys commands, Oriented to person, place, time, situation, Reports weakness generalized weakness. Cardiovascular: Reports chest pain, fatigue, lightheadedness, Capillary refill < 3 seconds in bilateral fingers Patient's skin is warm and dry. Rhythm is atrial fibrillation Chest pain is located in anterior chest wall substernal area. Respiratory: Airway is patent Respiratory effort is even, unlabored, Respiratory pattern is regular, symmetrical. GI: No signs and/or symptoms were reported involving the gastrointestinal system. large hernia to RLQ. : No signs and/or symptoms were reported regarding the genitourinary system. Derm: Skin is fragile, is thin, Skin is pink, warm \T\ dry. Musculoskeletal: Circulation, motion, and sensation intact. 10:09 Reassessment: Patient appears in no apparent distress at this time. Patient and/or ph family updated on plan of care and expected duration. Pain level reassessed. Patient is alert, oriented x 3, equal unlabored respirations, skin warm/dry/pink. Report called to RICARDO Andrews in ICU. Vital Signs: 04:59 BP 132 / 62; Pulse 76; Resp 17; Temp 97.8; Pulse Ox 96% ; Weight 52.62 kg (M); Height 5 8 ft. 0 in. ; 05:30 BP 118 / 51; Pulse 65; Pulse Ox 97% on R/A; lc8 07:07 BP 132 / 67; Pulse 79; Pulse Ox 98% on R/A; lc8 07:54 BP 124 / 75; Pulse 78; Resp 18; Pulse Ox 97% on R/A; ph 09:30 BP 128 / 78; Pulse 78; Resp 18; Pulse Ox 98% on R/A; ph 04:59 Body Mass Index 22.66 (52.62 kg, 152.4 cm) [facility] ED Course: 04:55 Patient arrived in ED. jj 04:59 Baljit Vargas, RN is Primary Nurse. [facility] 04:59 Darrick Cage MD is Attending Physician. [facility] 05:00 Arm band placed on. [facility] 05:[address] [facility] 05:15 Provided Education on: course of ed visit. [facility] 05:15 Patient has correct armband on for positive identification. Bed in low position. Call 8 light in reach. Side rails up X 1. 05:39 CT Traumagram (Head C Spine CAP wo con) In Process Unspecified. EDMS 06:10 XRAY Chest (1 view) In Process Unspecified. EDMS 06:24 Accessed peripheral vein via ultrasound, utilizing dynamic ultrasound technique Missed lg3 attempt(s): 20 gauge in left upper arm. Bleeding controlled, band aid applied, catheter tip intact. 06:40 Urinalysis w/ reflexes Sent. lc8 07:02 Virgilio Christie is Hospitalizing Provider. [place] 07:15 Initial lab(s) drawn, by ri, sent to lab. Inserted saline lock: 24 gauge in left wrist, ph using aseptic technique. Blood collected. 07:21 Britany Barragan, RN is Primary Nurse. ph 07:22 Basic Metabolic Panel Sent. ph 07:22 CBC with Diff Sent. ph 07:22 LFT's Sent. ph 07:23 Magnesium Sent. ph 07:23 NT PRO-BNP Sent. ph 07:23 PT-INR Sent. ph 07:23 Troponin HS Sent. ph 07:42 No provider procedures requiring assistance completed. ph 10:58 Patient admitted, IV remains in place. ph Administered Medications: 07:42 Drug: NS 0.9% IV 500 ml IV at bolus once Route: IV; Rate: bolus; Site: left wrist; ph 07:42 Drug: fentaNYL (PF) IVP 25 mcg IVP once Route: IVP; Site: left wrist; ph 07:42 Drug: Ondansetron IVP 4 mg IVP once; over 2 minutes Route: IVP; Site: left wrist; ph 07:42 Drug: Rocephin IV 1 grams IV at per protocol once; Given slow IV push per pharmacy ph instructions Route: IV; Rate: per protocol; Site: left wrist; 07:53 Drug: fentaNYL (PF) IVP 25 mcg IVP once Route: IVP; Site: left wrist; ph 09:14 Drug: morphine IVP or IV 4 mg IVP once over 4 mins Route: IVP; Infused Over: 4 mins; ph Site: left wrist; Medication: 05:15 VIS not applicable for this client. lc8 Outcome: 07:05 Decision to Hospitalize by Provider. [facility] 10:58 Patient left the ED. ph 10:58 Admitted to ICU accompanied by tech, via stretcher, room 3, Report called to melly Andrews RN 10:58 Condition: stable 10:58 Instructed on the need for admit, Signatures: Dispatcher [employer] EDMS Darrick Cage MD MD cha Hall, Patricia RN No Parmar ph, RN RN lg3 Margarita Mead jj6 Baljit Vargas RN RN lc8 Corrections: (The following items were deleted from the chart) 06:53 04:59 BP 132 / 62; Pulse 76bpm; Resp 17bpm; Pulse Ox 96%; Temp 97F; 52.62 kg Measured; lc8 Height 5 ft. 0 in.; BMI: 22.6; lc8 06:57 06:55 Reassessment: provider to bedside to attempt to gain iv access lc8 lc8 07:09 05:00 [facility] ED Fall Risk Assessment (Adult) History of falling in the last 3 months, lc8 including since admission Confusion or Disorientation No (0 pts) Intoxicated or Sedated No (0 pts) Impaired Gait Yes (1 pt) Mobility Assist Device Used Yes (1 pt) Altered Elimination No (0 pt) Score/Fall Risk Level 0 - 2 = Low Risk Oriented to surroundings, Maintained a safe environment, Hourly rounding (assess needs \T\ fall precautionary measures) done, lc8
--- NOTE | 2024-03-11 07:05 | EDPHYS ---
Physician Documentation [facility] Name: Sejal Mcnally Age: 73 yrs Sex: Female : 1950 Arrival Date: 03/11/2024 Time: 04:54 Bed 16 Private MD: ED Physician Darrick Cage HPI: 03/11 06:12 This 73 yrs old Female presents to ER via EMS with complaints of Pain. carrington 06:12 The patient or guardian reports chest pain that is located primarily in the anterior [facility] chest wall, bilaterally. Onset: 5 day(s) ago. FALL AT HOME WITH CHEST PAIN , NOT BETTER, MORE WEAK AND UNKEPT. The pain does not radiate. The patient or guardian reports chest pain that is located primarily in the anterior chest wall. Associated signs and symptoms: Pertinent positives: lightheadedness, nausea, shortness of breath. Modifying factors: The symptoms are alleviated by nothing. remaining still, the symptoms are aggravated by activity, breathing, cough, movement, palpation of area, walking. Historical: - Allergies: 05:11 Iodine; lc8 05:11 PENICILLINS; lc8 05:11 Sulfa (Sulfonamide Antibiotics); lc8 - Home Meds: 06:12 Aspirin Oral [Active]; lc8 - PMHx: 05:11 abdominal hernia; Multiple Sclerosis; lc8 - Immunization history:: Adult Immunizations unknown. - Infectious Disease History:: Denies. - Social history:: Smoking status: Patient denies any tobacco usage or history of. - Family history:: not pertinent. ROS: 06:12 Constitutional: Negative for fever, chills, and weight loss, Eyes: Negative for injury, carrington pain, redness, and discharge, ENT: Negative for injury, pain, and discharge, Neck: Negative for injury, pain, and swelling, Cardiovascular: Negative for chest pain, palpitations, and edema, Back: Negative for injury and pain, : Negative for injury, bleeding, discharge, and swelling, MS/Extremity: Negative for injury and deformity, Skin: Negative for injury, rash, and discoloration, Psych: Negative for depression, anxiety, suicide ideation, homicidal ideation, and hallucinations, Allergy/Immunology: Negative for hives, rash, and allergies, Endocrine: Negative for neck swelling, polydipsia, polyuria, polyphagia, and marked weight changes, 06:12 Cardiovascular: Positive for chest pain, with movement, of the chest, 06:12 Respiratory: Positive for cough, shortness of breath, on exertion. 06:12 Abdomen/GI: Positive for abdominal pain, of the right upper quadrant, left upper quadrant, right lower quadrant and left lower quadrant, LARGE VENTRAL HERNIA, 06:12 MS/extremity: Negative for decreased range of motion, warmth, Exam: 06:12 Constitutional: This is a well developed, well nourished patient who is awake, alert, carrington and in no acute distress. Head/Face: Normocephalic, atraumatic. Eyes: Pupils equal round and reactive to light, extra-ocular motions intact. Lids and lashes normal. Conjunctiva and sclera are non-icteric and not injected. Cornea within normal limits. Periorbital areas with no swelling, redness, or edema. ENT: Nares patent. No nasal discharge, no septal abnormalities noted. Tympanic membranes are normal and external auditory canals are clear. Oropharynx with no redness, swelling, or masses, exudates, or evidence of obstruction, uvula midline. Mucous membranes moist. Neck: Trachea midline, no thyromegaly or masses palpated, and no cervical lymphadenopathy. Supple, full range of motion without nuchal rigidity, or vertebral point tenderness. No Meningismus. Cardiovascular: Regular rate and rhythm with a normal S1 and S2. No gallops, murmurs, or rubs. Normal PMI, no JVD. No pulse deficits. Back: No spinal tenderness. No costovertebral tenderness. Full range of motion. Female : Normal external genitalia. Skin: Warm, dry with normal turgor. Normal color with no rashes, no lesions, and no evidence of cellulitis. MS/ Extremity: Pulses equal, no cyanosis. Neurovascular intact. Full, normal range of motion. Neuro: Awake and alert, GCS 15, oriented to person, place, time, and situation. Cranial nerves II-XII grossly intact. Motor strength 5/5 in all extremities. Sensory grossly intact. Cerebellar exam normal. Normal gait. Psych: Awake, alert, with orientation to person, place and time. Behavior, mood, and affect are within normal limits. 06:12 Chest/axilla: Inspection: normal, Palpation: tenderness, that is moderate, of the anterior aspect of right upper chest, anterior aspect of left upper chest, xiphoid area, right breast and left breast, Axilla: are normal, Breasts: are normal, Lymph nodes: lymphadenopathy is not appreciated, 06:12 ECG was reviewed by the Attending Physician. 06:54 ECG was reviewed by the Attending Physician. carrington Vital Signs: 04:59 BP 132 / 62; Pulse 76; Resp 17; Temp 97.8; Pulse Ox 96% ; Weight 52.62 kg (M); Height 5 lc8 ft. 0 in. ; 05:30 BP 118 / 51; Pulse 65; Pulse Ox 97% on R/A; lc8 07:07 BP 132 / 67; Pulse 79; Pulse Ox 98% on R/A; lc8 07:54 BP 124 / 75; Pulse 78; Resp 18; Pulse Ox 97% on R/A; ph 09:30 BP 128 / 78; Pulse 78; Resp 18; Pulse Ox 98% on R/A; ph 04:59 Body Mass Index 22.66 (52.62 kg, 152.4 cm) lc8 MDM: 04:59 Patient medically screened. carrington 06:19 Differential diagnosis: abnormal EKG, acute myocardial infarction, acute pericarditis, carrington anxiety, chest wall pain, congestive heart failure Cholelithiasis costochondritis, gastroesophageal reflux disease (GERD), hiatal hernia, pancreatitis, peptic ulcer disease, pneumonia, pneumothorax, pulmonary embolus, unstable angina, Blunt Chest Trauma Chest Wall Contusion Chest Wall Injury Pleural Effusion Pneumomediastinum Pneumopericardium Pneumothorax Pulmonary Contusion Rib Fracture Ruptured Hemidiaphragm. Differential Diagnosis altered mental status. HEART Score: History: Slightly Suspicious (0), ECG: Non specific repolarization disturbance / LBTB / PM (1), Age: > or = 65 years (2), Risk Factors: > or = 3 Risk factors for atherosclerotic disease (2), [Hypercholesterolemia] [Hypertension] [+ Family HX] Troponin: < or = 1 x Normal Limit (0). The patient was not given aspirin in the Emergency Department. Data reviewed: vital signs, nurses notes, EMS record, lab test result(s), EKG, radiologic studies, CT scan, plain films. Consideration of Admission/Observation Escalation of care including admission/observation considered. I considered the following discharge prescriptions or medication management in the emergency department Medications were administered in the Emergency Department. See MAR. Independent interpretation of the following test(s) in the Emergency Department EKG: See my EKG interpretation above. Historians other than the Patient: EMS: EMS WELL INFORMED. 03/11 05:02 Order name: Basic Metabolic Panel [facility] 03/11 05:02 Order name: CBC with Diff; Complete Time: 09:01 [facility] 03/11 05:02 Order name: LFT's [facility] 03/11 05:02 Order name: Magnesium [facility] 03/11 05:02 Order name: NT PRO-BNP [facility] 03/11 05:02 Order name: PT-INR; Complete Time: 09:01 [facility] 03/11 05:02 Order name: Troponin HS [facility] 03/11 05:02 Order name: Lipase [facility] 03/11 05:02 Order name: Urinalysis w/ reflexes; Complete Time: 07:09 [facility] 03/11 06:56 Order name: Urine Culture [facility] 03/11 08:06 Order name: Type And Screen ph 03/11 08:46 Order name: CBC Smear Scan; Complete Time: 09:01 [facility] 03/11 09:28 Order name: ABO/RH no charge; Complete Time: 09:44 [facility] 03/11 09:38 Order name: CBC with Automated Diff [facility] 03/11 09:38 Order name: Comprehensive Metabolic Panel [facility] 03/11 09:38 Order name: Magnesium [facility] 03/11 09:38 Order name: Phosphorus [facility] 03/11 09:38 Order name: Thyroid Stimulating Hormone [facility] 03/11 09:38 Order name: Lipid Profile [facility] 03/11 09:38 Order name: Lipid Profile [facility] 03/11 09:38 Order name: Lab Add On [facility] 03/11 09:39 Order name: BB Add On [facility] 03/11 09:44 Order name: Iron [facility] 03/11 09:44 Order name: Ferritin [facility] 03/11 05:02 Order name: XRAY Chest (1 view) [facility] 03/11 05:02 Order name: CT Traumagram (Head C Spine CAP wo con) [facility] 03/11 07:01 Order name: INCENTIVE SPIROMETRY [facility] 03/11 05:02 Order name: EKG; Complete Time: 05:03 [facility] 03/11 06:23 Order name: EKG; Complete Time: 06:24 [facility] 03/11 09:38 Order name: CONS Physician Consult [facility] 03/11 05:02 Order name: Cardiac monitoring; Complete Time: 07:22 [facility] 03/11 05:02 Order name: EKG - Nurse/Tech; Complete Time: 06:01 [facility] 03/11 05:02 Order name: IV Saline Lock; Complete Time: 07:22 [facility] 03/11 05:02 Order name: Labs collected and sent; Complete Time: 07:22 [facility] 03/11 05:02 Order name: O2 Per Protocol; Complete Time: 06:01 [facility] 03/11 05:02 Order name: O2 Sat Monitoring; Complete Time: 06: [facility] 03/11 06:23 Order name: EKG - Nurse/Tech; Complete Time: 06:40 [facility] 03/11 07:58 Order name: Labs - recollect needed: recollect green top; Complete Time: 09:14 bd EC:12 Rate is 82 beats/min. Rhythm is irregularly irregular. QRS Carrabelle is Normal. NV interval carrington is normal. QRS interval is normal. QT interval is normal. No Q waves. T waves are Normal. No ST changes noted. Clinical impression: NSR w/ Non-specific ST/T Changes, Atrial Fibrillation, and No evidence of ischemia. Interpreted by me. Reviewed by me. 06:54 Rate is 72 beats/min. Rhythm is regular. QRS Carrabelle is Normal. NV interval is normal. QRS carrington interval is normal. QT interval is normal. No Q waves. T waves are Normal. No ST changes noted. Clinical impression: NSR w/ Non-specific ST/T Changes and No evidence of ischemia. Interpreted by me. Reviewed by me. Administered Medications: 07:42 Drug: NS 0.9% IV 500 ml IV at bolus once Route: IV; Rate: bolus; Site: left wrist; ph 07:42 Drug: fentaNYL (PF) IVP 25 mcg IVP once Route: IVP; Site: left wrist; ph 07:42 Drug: Ondansetron IVP 4 mg IVP once; over 2 minutes Route: IVP; Site: left wrist; ph 07:42 Drug: Rocephin IV 1 grams IV at per protocol once; Given slow IV push per pharmacy ph instructions Route: IV; Rate: per protocol; Site: left wrist; 07:53 Drug: fentaNYL (PF) IVP 25 mcg IVP once Route: IVP; Site: left wrist; ph 09:14 Drug: morphine IVP or IV 4 mg IVP once over 4 mins Route: IVP; Infused Over: 4 mins; ph Site: left wrist; Disposition Summary: 03/11/24 07:05 Hospitalization Ordered Notes: Hospitalization Status: Inpatient Admission carrington Provider: Virgilio Christie cha Condition: Fair carrington Problem: new carrington Symptoms: have improved carrington Bed/Room Type: Standard carrington Location: Intensive Care Unit(03/11/24 09:50) bd Room Assignment: 3-(03/11/24 09:50) bd Diagnosis - Fall on same level, unspecified carrington - Acute cystitis without hematuria carrington - Multiple fractures of ribs, right side - 3,5,6,7,8 \T\ 9th carrington - Dehydration carrington - Weakness carrington - Atelectasis carrington Forms: - Medication Reconciliation Form carrington - SBAR form carrington - Leadership Thank You Letter carrington Signatures: Dispatcher [employer] EDMS Libra Mcgill Corey, MD MD cha Waters, Shelly, TOOL SUPERVISOR-C TOOL SUPERVISOR-Britany Bunch RN RN ph Clark, LaBrisha, RN RN lc8 Corrections: (The following items were deleted from the chart) 05:03 05:02 BASIC METABOLIC PANEL+C.LAB.BRZ ordered. EDMS EDMS 05:03 05:02 CBC+H.LAB.BRZ ordered. EDMS EDMS 05:03 05:03 HEPATIC FUNCTION+C.LAB.BRZ ordered. EDMS EDMS 05:03 05:03 MAGNESIUM+C.LAB.BRZ ordered. EDMS EDMS 05:03 05:03 PROBNP+C.LAB.BRZ ordered. EDMS EDMS 05:03 05:03 PROTIME (+INR)+COAG.LAB.BRZ ordered. EDMS EDMS 05:03 05:03 Troponin High Sensitivity+C.LAB.BRZ ordered. EDMS EDMS 05:03 05:03 LIPASE+C.LAB.BRZ ordered. EDMS EDMS 05:03 05:03 Urinalysis+U.LAB.BRZ ordered. EDMS EDMS 08:06 08:06 TYPE AND SCREEN+BB.LAB.BRZ ordered. EDMS EDMS 09:50 07:05 Telemetry/MedSurg (Inpatient) carrington bd 09:50 07:05 carrington bd
[2024-03-11] MEDS ORDERED: ONDANSETRON 4 MG/2 ML VIAL ONE (07:25)
[2024-03-11] MEDS ORDERED: FENTANYL CITR 100 MCG/2 ML ONE (07:25)
[2024-03-11] MEDS ORDERED: CEFTRIAXONE 1000 MG/VIAL ONE (07:25)
[2024-03-11] MEDS ORDERED: NA CHLORIDE 0.9% 500 ML ONE (07:26)
[2024-03-11 07:27] LABS: Absolute Basophils 0.1 K/uL (0-0.5); Absolute Eosinophils 0.1 K/uL (0-0.5); Absolute Lymphocytes (CBC) 0.9 K/uL (0.7-4.9); Absolute Monocytes 0.6 K/uL (0.1-1.3); Absolute Neutrophil 8.3 K/uL (1.8-8.0); Basophils % 1.2 % (0-1.3); Eosinophils % 0.8 % (0-4.4); Hematocrit 25.5 % (36.0-45.0); Hemoglobin 7.5 g/dL (12.0-15.0); MCHC 29.3 g/dL (32.0-36.0); MCV 61.3 fL (80-100); MPV 6.8 fL (7.6-11.3); Monocytes % 5.6 % (3.3-12.3); Neutrophils % 83.4 % (41.7-73.7); Platelets 563 thou/uL (152-406); RBC Red Blood Cell Count 4.16 M/uL (3.86-4.86); Red Cell Distribution Width 21.3 % (12.1-15.2)
[2024-03-11 07:32] LABS: PT Prothrombin Time 12.2 SECONDS (9.5-12.5); Protime INR 1.11
--- NOTE | 2024-03-11 08:06 | P.HP ---
Certification for Inpatient Patient admitted to: Observation With expected LOS: <2 Midnights Patient will require the following post-hospital care: Home Health Services Practitioner: I am a practitioner with admitting privileges, knowledge of patient current condition, hospital course, and medical plan of care. Services: Services provided to patient in accordance with Admission requirements found in Title 42 Section 412.3 of the Code of Federal Regulations <Cary Shipman - Last Filed: 03/11/24 12:09> Patient History Date of Service: 03/11/24 Reason for admission: fall, multiple rib fx History of Present Illness: Mr. Mcnally is a 73-year-old with a past medical history of multiple sclerosis. She states she has not seen a physician in over a year and takes no regular medications. She states she occasionally takes an enteric-coated full dose aspirin. 2 days ago, she fell and presented to the emergency department where chest x-ray was reported as negative, CT head negative, CT abdomen without contrast negative. She reported to the emergency department again this morning secondary to pleuritic chest pain. On CT traumagram it shows a right anterior third rib and fifth through ninth rib fractures without underlying pulmonary contusion or pneumothorax. She will be observed in the ICU overnight with pulmonary toilet and incentive spirometry. Labs: Blood type O+, WBC 10 with neutrophils 83.4%, H/H 7.5/25.5 with platelets 563. Magnesium 2.5, potassium 3.4, sodium 138, chloride 106, CO2 26, glucose 91, BUN, creatinine 9 3 with a GFR 66, proBNP 904. INR 1.1, urine with 1+ blood, 1+ protein, nitrites 2+, esterase 500, (sent for culture) Home medications list reviewed: Yes (no home meds - occ aspirin) - Past Medical/Surgical History Has patient received pneumonia vaccine in the past: No -: MS -: Ventral hernia -: C/S x 7 -: Tonsillectomy -: Hernia repair -: Appendectomy -: Skin graft to left finger Psychosocial/ Personal History: Lives at home with her , barely gets out of bed, no assistive devices, states she has not seen a doctor in over a year - Family History Family History: Reviewed- Non-Contributory - Social History Smoking Status: Current some day smoker Alcohol use: No CD- Drugs: No Caffeine use: Yes Place of Residence: Home <Cary Shipman - Last Filed: 03/11/24 12:09> Date of Service: 03/11/24 <Dennis Gotti - Last Filed: 03/11/24 14:05> Allergies Iodinated Contrast Media Allergy (Verified 03/11/24 08:35) Penicillins Allergy (Verified 03/11/24 08:35) Sulfa (Sulfonamide Antibiotics) Allergy (Verified 03/11/24 08:35) Home Medications: NK [No Home Meds] 03/11/24 Review of Systems 10-point ROS is otherwise unremarkable General: Weakness, Malaise Eyes: Unremarkable ENT: Unremarkable Respiratory: Shortness of Breath, Pleuritic Pain, As per HPI <Cary Shipmanlen - Last Filed: 03/11/24 12:09> Physical Examination - Physical Exam General: Alert, In no apparent distress, Oriented x3 HEENT: Atraumatic, Normocephalic Neck: Supple Respiratory: Other (tenderness to chest wall, +pleuritic chest pain, increased on inspiration) Cardiovascular: Normal pulses, Regular rate/rhythm Capillary refill: <2 Seconds Gastrointestinal: Other (large ventral (right) hernia, soft and benign) Musculoskeletal: No clubbing, No swelling, Other (moves all extremities without difficulty) Integumentary: No rashes Neurological: Normal speech, Normal tone, Other (+ pain with movement of trunk, weakness) Lymphatics: No axilla or inguinal lymphadenopathy External genitalia: Deferred Rectal: Deferred - Studies Laboratory Data (last 24 hrs) 03/11/24 03/11/24 07:15 07:15 WBC 10.00 Hgb 7.5 L Hct 25.5 L Plt Count 563 H PT 12.2 INR 1.11 <Cary Shipmanlen - Last Filed: 03/11/24 12:09> - Studies Laboratory Data (last 24 hrs) 03/11/24 03/11/24 03/11/24 08:25 07:15 07:15 WBC 10.00 Hgb 7.5 L Hct 25.5 L Plt Count 563 H PT 12.2 INR 1.11 Sodium 138 Potassium 3.4 L BUN 20 H Creatinine 0.93 Glucose 91 Magnesium 2.5 H Total Bilirubin 0.3 AST 12 L ALT < 14 Alkaline Phosphatase 148 H Lipase 16 <Dennis Gotti - Last Filed: 03/11/24 14:05> Assessment and Plan - Plan Fall/multiple right rib fractures Pain control I-S Consult Surgery (Dr. Wolf) UTI UC sent from ED, Rocephin 1gm IVPB daily anemia ferritin/iron levels Transfuse 2 units PRBC Monitor and trend Iron infusion MS range of motion exercises T,C, DB q 2h while awake Constipation Lactulose GI/VRE prophylaxis Protonix 40mg iv/lovenox Discharge Plan: Home Plan to discharge in: 24 Hours - Advance Directives Does patient have a Living Will: No Does patient have a Durable POA for Healthcare: No - Code Status/Comfort Care Code Status: Full Code <Cary Shipman - Last Filed: 03/11/24 12:09> - Plan Pt seen and examined. I agree with the note by the TECHNICAL WRITER AND EDITOR. Pt is a 73yo male with past medical history of multiple sclerosis and anemia who presents with in the ER due to pleuritic chest pain. Of note, pt fell 2 days ago and came to the ER for evaluation. During that ER visit, CXR was unremarkable. CTA head was unremarkable. During today's admission, CT traumagram shows right anterior third rib and fifth through ninth rib fractures without underlying pulmonary contusion or pneumothorax. ON admission, lab studies show wbc 10, Hgb 7.5, K 3.4, Cr 0.93, BNP 904, INR 1.1, and BUN 20. UA is positive for UTI. ER physician called medicine for admission. At bedside, pt is in NAD. A/P: Fall: Will continue fall precaution. Will check vitamin D level. Rib farcture: Per imaging study. Continue prn pain med. UTI: Will continue rocephin. Anemia: Hgb is7.5. Will give 2 units of pRBC. Hx of MS; Continue supportivecare. Constipation: prn lactulose. DVT ppx: SCD <Dennis Gotti C - Last Filed: 03/11/24 14:05>
[2024-03-11 08:49] LABS: White Blood Cell Scan OK (OK)
[2024-03-11 08:50] LABS: Anisocytosis 1+; Blood Morphology Comment NOTED (NOT SEEN); Hypochromasia 2+; Microcytosis 2+; Platelet Estimate INCR; Target Cells FEW
[2024-03-11] MEDS ORDERED: MORPHINE 4 MG/ML SYR ONE (08:56)
[2024-03-11 09:19] LABS: AST/SGOT 12 U/L (15-37); Albumin 2.8 g/dL (3.4-5.0); Albumin/Globulin Ratio 0.8 (1.1-1.8); Alkaline Phosphatase 148 U/L (45-117); Anion Gap 9.4 mEq/L (5.0-15.0); BUN Blood Urea Nitrogen 20 mg/dL (7-18); Bicarbonate 26 mEq/L (21-32); Bilirubin Total 0.3 mg/dL (0.2-1.0); Globulin 3.6 g/dL (2.3-3.5); Glomerular Filtration Rate 66 ml/min (=/>90); Glucose Level 91 mg/dL (74-106); Lipase 16 U/L (13-75); Magnesium 2.5 mg/dL (1.6-2.4); NT PRO-BNP 904 pg/mL (<125); Potassium 3.4 mEq/L (3.5-5.1); Protein, Total 6.4 g/dL (6.4-8.2); Sodium Level 138 mEq/L (136-145); Troponin High Sensitivity 7.1 pg/mL (<58.9)
[2024-03-11 09:20] LABS: ALT/SGPT < 14 U/L (13-56); Bilirubin Direct < 0.2 mg/dL (0-0.2); Bilirubin Indirect, Calculated 0.1 mg/dL (0.2-0.8)
[2024-03-11] MEDS ORDERED: SODIUM CHLORIDE 0.9% 10ML INJ IV PRN (09:42)
[2024-03-11 09:56] LABS: Ferritin 4.2 ng/mL (8-388)
[2024-03-11 10:02] LABS: Iron < 10.0 ug/dL (50-170)
--- NOTE | 2024-03-11 10:15 | RAD REPORT ---
EXAM DESCRIPTION: XR Chest, 1 View CLINICAL HISTORY: The patient is 73 years old and is Female; Cough TECHNIQUE: Frontal view of the chest. COMPARISON: No pertinent prior images available for comparison at time of dictation FINDINGS: LUNGS: Relatively low lung volumes bilaterally. Allowing for this and patient positionin g, no focal consolidation. PLEURAL SPACE: Blunting of the right costophrenic angle, suggesting pleural thickening versus effus ion. No appreciable pneumothorax. MEDIASTINUM: Prominence of the cardiomediastinal silhouette, likely exaggerated secondary to portab le technique, positioning, and patient body habitus. BONES/JOINTS: Marked scoliotic curvature of the thoracic spine. Multilevel remote mid left lateral rib fractures. UPPER ABDOMEN: Rightward patient rotation with right hemidiaphragm elevation. IMPRESSION: 1. Blunting of the right costophrenic angle, suggesting pleural thickening versus effu lizbeth. 2. Otherwise, no acute cardiopulmonary abnormality. 3. Marked scoliotic curvature of the thoracic spine. Electronically signed by: Cody Stern MD 03/11/2024 06:58 AM CDT Due to temporary technical issues with the PACS/Fluency reporting system, reports are being signed by the in house radiologist without review as a courtesy to ensure prompt reporting. The interpreting r adiologist is fully responsible for the content of the report.
[2024-03-11] MEDS: ALBUTEROL 2.5 MG/3 ML NEB SOL NEB SCH ×2 (10:18→14:01)
--- NOTE | 2024-03-11 10:20 | RAD REPORT ---
EXAM DESCRIPTION: Head C Spine Cap Wo Con CLINICAL HISTORY: Pain;Trauma COMPARISON: 03/09/2024 and report from 04/28/2020 TECHNIQUE: Axial CT of the head obtained from the skull apex to the skull base without contrast. Axi al CT images of the cervical spine obtained without contrast. CT of the chest, abdomen and pelvis per formed without IV contrast. Evaluation of the solid organs and vasculature is suboptimal due to lack of IV contrast. This exam was performed according to our departmental dose-optimization program, whic h includes automated exposure control, adjustment of the mA and/or kV according to patient size and/o r use of iterative reconstruction technique. FINDINGS: Head CT: No acute intracranial hemorrhage identified. No mass, mass effect, shift of the midline, abnormal ext ra-axial fluid collection or CT evidence of acute ischemic change identified. The ventricular system and sulcal spaces are mildly enlarged compatible with mild cerebral atrophy. Scattered areas of hyp odensity throughout the supratentorial white matter are nonspecific and may be related to chronic sma ll vessel ischemic change. The visualized paranasal sinuses and the mastoids are clear. No skull fracture identified. Visualiz ed orbits and globes are unremarkable. Atherosclerotic calcification of the intracranial internal car otid arteries. Cervical CT : Alignment of the cervical spine is maintained without evidence of subluxation. The atlantoaxial, at lantodental, and occipitoatlantal intervals are preserved. No fracture identified. Vertebral body h eight preserved. Prevertebral soft tissues are unremarkable. Mild to moderate multilevel loss of intervertebral disc height with endplate spondylosis, facet arthr opathy, and uncovertebral spurring. Posterior disc osteophyte complex at multiple levels mildly encro ach upon the anterior spinal canal. Mild neural foraminal narrowing. No cervical lymphadenopathy. Chest: Thyroid: No abnormalities of the visualized thyroid. Great Vessels: Great vessels have normal anatomic configuration. Thoracic Aorta: Atherosclerotic calcification of the thoracic aorta. Pulmonary arteries: The main pulmonary artery is not dilated. Heart: Coronary artery atherosclerosis. Lymph Nodes: No enlarged mediastinal lymph nodes identified. Esophagus: Small hiatal hernia. Other: No additional findings. Lungs: Mild dependent atelectasis in the right lung. Pleura: No pleural effusion or pneumothorax. Trachea/Airways: No abnormalities of the visualized trachea or airways. Abdomen: Liver: Hepatomegaly. Right hepatic cyst measuring 5.1 cm. Gallbladder: No calcified gallstones. Spleen, Pancreas, and Adrenal Glands: Splenomegaly. The pancreas and adrenal glands are unremarkabl e. Kidneys: The kidneys have normal size and contour without evidence of solid mass or hydronephrosis. Nonobstructing bilateral nephrolithiasis. Vasculature: IVC is unremarkable. Aortoiliac atherosclerosis. Stomach: The stomach and duodenum have normal course. Other: No free intraperitoneal air. No free fluid or lymphadenopathy. Pelvis: Bladder: Mild wall thickening of the urinary bladder. Bowel: No dilated loops of large or small bowel. Large ventral hernia containing nondilated loops o f large and small bowel. Large amount stool in the rectum. Scattered diverticula of the colon. Appendix: Not definitely identified. Pelvis: Uterus is not enlarged. Bones: Levoconvex scoliosis of the thoracolumbar spine. Multilevel endplate spondylosis, disc height narrowing, and facet arthropathy. Osteoarthritic change of the hips. Osteopenia. Nondisplaced fractur es of the anterior third and fifth through ninth ribs. Remote fractures of the left fifth through eig hth ribs. IMPRESSION: 1. No acute intracranial abnormality identified. 2. No acute fracture or subluxation of the cervical spine. 3. Nondisplaced fractures of the anterior right third and fifth through ninth ribs. 4. Large ventral hernia containing nondilated loops of large and small bowel. 5. Large amount stool in the rectum. 6. Nonobstructing bilateral nephrolithiasis. 7. Mild wall thickening of the urinary bladder. This could be seen with cystitis. 8. Hepatosplenomegaly. 9. Diverticulosis without evidence of acute diverticulitis. 10. Coronary artery atherosclerosis. Electronically signed by: Demarcus Hallman DO 03/11/2024 06:31 AM CDT 4ZDM Due to temporary technical issues with the PACS/Fluency reporting system, reports are being signed by the in house radiologist without review as a courtesy to ensure prompt reporting. The interpreting r adiologist is fully responsible for the content of the report.
[2024-03-11] MEDS ORDERED: LIDOCAINE 5% OINT 30 GM TUBE TOP PRN (11:08)
[2024-03-11] MEDS: LACTULOSE 20 GM/30 ML UCUP PO ONE (11:18)
[2024-03-11] MEDS: MORPHINE 2 MG/ML SYR IV PRN (11:18)
[2024-03-11] MEDS: SOD FERRIC GLUC COMPLX/SUCROSE 250 MG in NA CHLORIDE 0.9% 250 ML IV SCH (12:21)
[2024-03-11] MEDS: IPRATROPIUM BROM 0.5MG/2.5ML NEB SCH (14:01)
--- NOTE | 2024-03-11 14:51 | EKG ---
Test Date: 2024-03-11 Test Time: 05:55:19 Glove Presser: LTC MEASUREMENT RESULTS: Intervals: Rate: 82 [place]: QRSD: 70 QT: 382 QTc: 446 [place]: P: NV: QRS: -2 T: 32 INTERPRETIVE STATEMENTS: Atrial fibrillation Nonspecific ST and T wave abnormality, probably digitalis effect Abnormal ECG No previous ECG available for comparison Electronically Signed On 03-11-24 14:50:32 CDT by Sonny Lee
--- NOTE | 2024-03-11 14:51 | EKG ---
Test Date: 2024-03-11 Test Time: 06:34:07 High Speed Operator: MEASUREMENT RESULTS: Intervals: Rate: 72 FL: 200 QRSD: 74 QT: 418 QTc: 457 [place]: P: [place]: 200 QRS: 0 T: 38 INTERPRETIVE STATEMENTS: Sinus rhythm with premature atrial complexes Nonspecific ST and T wave abnormality Abnormal ECG Compared to ECG 03/11/2024 05:55:19 Atrial premature complex(es) now present Atrial fibrillation no longer present ST (T wave) deviation still present Electronically Signed On 03-11-24 14:50:30 CDT by Sonny Lee
[2024-03-11] MEDS ORDERED: MORPHINE 4 MG/ML SYR IV PRN (14:54)
[2024-03-11] MEDS: MORPHINE 4 MG/ML SYR IV PRN (15:15)
[2024-03-11 16:18] VITALS: BMI 22.6
[2024-03-11] MEDS ORDERED: Mupirocin NASAL 2 APPL/1 GM TUBE NAS SCH (21:00)
[2024-03-12 05:52] LABS: Absolute Basophils 0.1 K/uL (0-0.5); Absolute Eosinophils 0.1 K/uL (0-0.5); Absolute Lymphocytes (CBC) 0.9 K/uL (0.7-4.9); Absolute Monocytes 0.6 K/uL (0.1-1.3); Absolute Neutrophil 6.9 K/uL (1.8-8.0); Eosinophils % 1.6 % (0-4.4); Hematocrit 24.5 % (36.0-45.0); Hemoglobin 7.2 g/dL (12.0-15.0); Lymphocytes % 10.2 % (15.3-44.8); MCH 18.2 pg (27.0-35.0); MCHC 29.4 g/dL (32.0-36.0); MCV 61.9 fL (80-100); MPV 7.3 fL (7.6-11.3); Monocytes % 7.2 % (3.3-12.3); Nucleated Red Blood Cells % 0.1 % (0-0); Platelets 592 thou/uL (152-406); RBC Red Blood Cell Count 3.96 M/uL (3.86-4.86); Red Cell Distribution Width 21.1 % (12.1-15.2)
[2024-03-12 06:15] LABS: AST/SGOT 12 U/L (15-37); Albumin 2.8 g/dL (3.4-5.0); Albumin/Globulin Ratio 0.8 (1.1-1.8); Alkaline Phosphatase 149 U/L (45-117); Anion Gap 10.8 mEq/L (5.0-15.0); BUN Blood Urea Nitrogen 17 mg/dL (7-18); Bicarbonate 27 mEq/L (21-32); Bilirubin Total 0.3 mg/dL (0.2-1.0); Globulin 3.4 g/dL (2.3-3.5); Glomerular Filtration Rate 74 ml/min (=/>90); Glucose Level 104 mg/dL (74-106); HDL Cholesterol 50 mg/dL (40-60); LDL Cholesterol, Calculated 77 mg/dL (<130); LDL Cholesterol,Calc NonReport 77; Magnesium 2.5 mg/dL (1.6-2.4); Phosphorus 5.1 mg/dL (2.5-4.9); Potassium 3.8 mEq/L (3.5-5.1); Protein, Total 6.2 g/dL (6.4-8.2); Sodium Level 139 mEq/L (136-145)
[2024-03-12 06:20] LABS: ALT/SGPT < 14 U/L (13-56)
[2024-03-12] MEDS: DIPHENHYDRAMINE 25 MG TAB/CAP PO ONE (08:03)
[2024-03-12] MEDS: ENOXAPARIN 30 MG/0.3 ML SQ SCH (08:03)
[2024-03-12] MEDS: PANTOPRAZOLE 40 MG INJ IVP SCH (08:03)
[2024-03-12] MEDS: DRISDOL (VITAMIN D=ERGOCALCIFEROL) 50000 UNIT CAP PO SCH (08:03)
[2024-03-12] MEDS: CEFTRIAXONE 1,000 MG in NA CHLORIDE 0.9% 50 ML IVPB SCH (08:03)
[2024-03-12 08:34] VITALS: O2SAT 96
--- NOTE | 2024-03-12 09:50 | P.PN ---
Subjective Date of Service: 03/12/24 Chief Complaint: fall, multiple rib fx Subjective: No new changes (pt refused blood, iron, PICC. Discussed need to treat conditions otherwise will discharge as tx is no different than being home) <Sarah Shipmany Enrike - Last Filed: 03/12/24 09:45> Date of Service: 03/12/24 <Dennis Gotti Kristen - Last Filed: 03/12/24 11:16> Review of Systems 10-point ROS is otherwise unremarkable General: Weakness, As per HPI Respiratory: Cough, As per HPI Genitourinary: Frequency Musculoskeletal: Other (multiple fractured ribs), As per HPI <Sarah Shipmany Enrike - Last Filed: 03/12/24 09:45> Physical Examination - Vital Signs Temperature: 97.6 F Blood Pressure: 109/50 Pulse: 74 Respirations: 22 Pulse Ox (%): 96 - Physical Exam General: Alert, In no apparent distress, Oriented x3, Other (pale) HEENT: Normocephalic Respiratory: Normal air movement, Other (splinting ribs with cough) Cardiovascular: Normal pulses, Irregular heart rate/rhythm Capillary refill: <2 Seconds Gastrointestinal: Soft and benign, Other (large ventral/right hernia) Musculoskeletal: No clubbing, No swelling Integumentary: No rashes Neurological: Normal tone, Normal affect Lymphatics: No axilla or inguinal lymphadenopathy External genitalia: Deferred Rectal: Deferred <Sarah Shipmany Enrike - Last Filed: 03/12/24 09:45> Assessment And Plan - Plan Fall/multiple right rib fractures Pain control I-S Consult Surgery (Dr. Wolf) UTI UC sent from ED, 03/12/24 4+ gnr Rocephin 1gm IVPB daily anemia ferritin/iron levels Transfuse 2 units PRBC (pt refused) Monitor and trend Iron infusion (pt refused) MS range of motion exercises T,C, DB q 2h while awake Constipation Lactulose 03/12/24 repeat GI/VRE prophylaxis Protonix 40mg iv/lovenox <Sarah Shipmany Enrike - Last Filed: 03/12/24 09:45> - Plan Pt seen and examined. I agree with the note by the CONTRACT CLERK. Hgb is 7.2. Pt refused blood transfusion. Will continue iron infusion. Will start vitamin D supplement due to low vitamin D level ( < 5.5). Will likely dc pt today. <Dennis Gotti - Last Filed: 03/12/24 11:16>
[2024-03-12] MEDS: LACTULOSE 20 GM/30 ML UCUP PO SCH (10:17)
[2024-03-12 12:12] VITALS: TEMP 97.8
--- NOTE | 2024-03-12 12:14 | P.DS ---
Admission Date: 03/11/24 Discharge Date: 03/12/24 Reason for Admission: fall, multiple rib fx Brief History of Present Illness: Mr. Mcnally is a 73-year-old with a past medical history of multiple sclerosis. She states she has not seen a physician in over a year and takes no regular medi cations. She states she occasionally takes an enteric-coated full dose aspirin. 2 days ago, she fell and presented to the emergency department where chest x- ray was reported as negative, CT head negative, CT abdomen without contrast negative. She reported to the emergency department again this morning secondary to pleuritic chest pain. On CT traumagram it shows a right anterior third rib and fifth through ninth rib fractures without underlying pulmonary contusion or pneumothorax. She will be observed in the ICU overnight with pulmonary toilet and incentive spirometry. Labs: Blood type O+, WBC 10 with neutrophils 83.4%, H/H 7.5/25.5 with platelets 563. Magnesium 2.5, potassium 3.4, sodium 138, chloride 106, CO2 26, glucose 91, BUN, creatinine 9 3 with a GFR 66, proBNP 904. INR 1.1, urine with 1+ blood, 1+ protein, nitrites 2+, esterase 500, (sent for culture) Hospital Course: Ms. Mcnally would benefit from consultation with cardiology, GI, and her PCP. She fell with resulting anterior third and fifth through ninth right rib fractures. During hospitalization she was found to be anemic, iron deficient, vitamin D deficient, and has 4+ gram-negative rods in her urine. She refuses blood, iron, additional IV therapy. General surgery, Dr. Wolf, has cleared her from a trauma standpoint. As patient is unwilling to accept treatment for other medical problems, we will discharge her to her PCP for further evaluation and treatment. <Cary Shipman - Last Filed: 03/12/24 12:09> Admission Date: 03/11/24 Discharge Date: 03/12/24 Hospital Course: Pt seen and examined. I agree with the note by the APPRAISER LAND. Pt refused blood transfusion and other medical treatment we offered. Ok to discharge her <Dennis Gotti - Last Filed: 03/12/24 22:27> Disposition: ROUTINE DISCHARGE Discharge Condition: FAIR Vital Signs/Physical Exam: Temp Pulse Resp BP Pulse Ox 97.6 F 75 17 104/42 L 97 03/12/24 09:49 03/12/24 11:00 03/12/24 11:00 03/12/24 11:00 03/12/24 11:00 General: Alert, In no apparent distress, Oriented x3 HEENT: Atraumatic, Normocephalic Neck: Supple Respiratory: Normal air movement, Other (splints ribs with cough as appropriate) Cardiovascular: Normal S1 S2, Irregular heart rate/rhythm Capillary refill: <2 Seconds Gastrointestinal: Soft and benign, Other (large ventral/right hernia) Musculoskeletal: No clubbing, No swelling Integumentary: No rashes Neurological: Normal speech, Normal tone, Normal affect Lymphatics: No axilla or inguinal lymphadenopathy External genitalia: Deferred Rectal: Deferred Laboratory Data at Discharge: WBC 8.70 thou/uL (4.3-10.9) 03/12/24 05:08 Hgb 7.2 g/dL (12.0-15.0) L 03/12/24 05:08 Hct 24.5 % (36.0-45.0) L 03/12/24 05:08 Plt Count 592 thou/uL (152-406) H 03/12/24 05:08 PT 12.2 SECONDS (9.5-12.5) 03/11/24 07:15 INR 1.11 03/11/24 07:15 Sodium 139 mEq/L (136-145) 03/12/24 05:08 Potassium 3.8 mEq/L (3.5-5.1) 03/12/24 05:08 BUN 17 mg/dL (7-18) 03/12/24 05:08 Creatinine 0.84 mg/dL (0.55-1.02) 03/12/24 05:08 Glucose 104 mg/dL (74-106) 03/12/24 05:08 Phosphorus 5.1 mg/dL (2.5-4.9) H 03/12/24 05:08 Magnesium 2.5 mg/dL (1.6-2.4) H 03/12/24 05:08 Total Bilirubin 0.3 mg/dL (0.2-1.0) 03/12/24 05:08 AST 12 U/L (15-37) L 03/12/24 05:08 ALT < 14 U/L (13-56) 03/12/24 05:08 Alkaline Phosphatase 149 U/L (45-117) H 03/12/24 05:08 Triglycerides 156 mg/dL (<150) H 03/12/24 05:08 Cholesterol 158 mg/dL (<200) 03/12/24 05:08 HDL Cholesterol 50 mg/dL (40-60) 03/12/24 05:08 Cholesterol/HDL Ratio 3.16 03/12/24 05:08 Lipase 16 U/L (13-75) 03/11/24 08:25 <Shipman,Cary Enrike - Last Filed: 03/12/24 12:09> Vital Signs/Physical Exam: Temp Pulse Resp BP Pulse Ox 97.8 F 73 12 101/44 L 96 03/12/24 12:00 03/12/24 15:00 03/12/24 15:00 03/12/24 15:00 03/12/24 15:00 Laboratory Data at Discharge: WBC 8.70 thou/uL (4.3-10.9) 03/12/24 05:08 Hgb 7.2 g/dL (12.0-15.0) L 03/12/24 05:08 Hct 24.5 % (36.0-45.0) L 03/12/24 05:08 Plt Count 592 thou/uL (152-406) H 03/12/24 05:08 PT 12.2 SECONDS (9.5-12.5) 03/11/24 07:15 INR 1.11 03/11/24 07:15 Sodium 139 mEq/L (136-145) 03/12/24 05:08 Potassium 3.8 mEq/L (3.5-5.1) 03/12/24 05:08 BUN 17 mg/dL (7-18) 03/12/24 05:08 Creatinine 0.84 mg/dL (0.55-1.02) 03/12/24 05:08 Glucose 104 mg/dL (74-106) 03/12/24 05:08 Phosphorus 5.1 mg/dL (2.5-4.9) H 03/12/24 05:08 Magnesium 2.5 mg/dL (1.6-2.4) H 03/12/24 05:08 Total Bilirubin 0.3 mg/dL (0.2-1.0) 03/12/24 05:08 AST 12 U/L (15-37) L 03/12/24 05:08 ALT < 14 U/L (13-56) 03/12/24 05:08 Alkaline Phosphatase 149 U/L (45-117) H 03/12/24 05:08 Triglycerides 156 mg/dL (<150) H 03/12/24 05:08 Cholesterol 158 mg/dL (<200) 03/12/24 05:08 HDL Cholesterol 50 mg/dL (40-60) 03/12/24 05:08 Cholesterol/HDL Ratio 3.16 03/12/24 05:08 Lipase 16 U/L (13-75) 03/11/24 08:25 <Dennis Gotti - Last Filed: 03/12/24 22:27> Diet: AHA Activity: Ad ashutosh <Cary Shipman - Last Filed: 03/12/24 12:09> <Dennis Gotti - Last Filed: 03/12/24 22:27> Home Medications: Aspirin [Aspirin EC 81 MG] 81 mg PO DAILY #90 tab 03/12/24 Cefpodoxime Proxetil [Vantin] 200 mg PO BID #20 tab 03/12/24 Iron/Vitc/B12/B6/E/FA/If/Senna [Iro-Plex Caplet] 1 each PO DAILY #90 tab 03/12/24 Tramadol HCl [Ultram] 50 mg PO QID 5 Days #20 tab 03/12/24 Vitamin D [Drisdol*] 50,000 unit PO Q7D@0900 #12 cap 03/12/24 New Medications: Aspirin [Aspirin EC 81 MG] 81 mg PO DAILY #90 tab Vitamin D [Drisdol*] 50,000 unit PO Q7D@0900 #12 cap Iron/Vitc/B12/B6/E/FA/If/Senna [Iro-Plex Caplet] 1 each PO DAILY #90 tab Tramadol HCl [Ultram] 50 mg PO QID 5 Days #20 tab Cefpodoxime Proxetil [Vantin] 200 mg PO BID #20 tab Physician Discharge Instructions: PROBLEM: Rib Fracture GOAL: Clear understanding of disease process INSTRUCTIONS: Okay to DC IV and DC home Follow-up with primary care provider in 1 to 2 weeks Please call the inpatient unit for any questions or concerns regarding hospital stay Return to the ER for worsening symptoms Ms. Mcnally would benefit from consultation with cardiology, GI, and her PCP. She fell with resulting anterior third and fifth through ninth right rib fractures. During hospitalization she was found to be anemic, iron deficient, vitamin D deficient, and has 4+ gram-negative rods in her urine. She refuses blood, iron, additional IV therapy. General surgery, Dr. Wolf, has cleared h er from a trauma standpoint. As patient is unwilling to accept treatment for other medical problems, we will discharge her to her PCP for further evaluation and treatment. Diet: AHA Activity: Ad ashutosh DME DME: Date Ordered: Name of Company: [employer] Services Needed: None Name of Company: Date or Referral: IMMUNIZATION Influenza Vaccine Indicated: Influenza Vaccine Given: Date Given: Pneumonia Vaccine Indicated: No Pneumonia Vaccine Given: Date Given: Followup: Casie Cordova MD [Primary Care Provider] -
--- NOTE | 2024-03-12 12:36 | RAD REPORT ---
EXAM DESCRIPTION: RADChest Single View03/12/2024 10:58 am CLINICAL HISTORY: right rib fractures COMPARISON: Chest Single View dated 03/11/2024; Chest Single View dated 03/09/2024; Chest Single View dated 10/11/2022; Head C Spine Cap Wo Con dated 03/11/2024 TECHNIQUE: Portable AP view of the chest. FINDINGS: Patient rotation and scoliotic deformity limit evaluation. Progressive opacification in th e right base and costophrenic angle, suggesting worsening effusion and underlying airspace opacificat ion. Left lung remains clear. No pneumothorax. The cardiomediastinal contours are unremarkable. IMPRESSION: Worsening right pleural effusion with underlying airspace opacification, possibly atelec tasis.
[2024-03-12 15:37] VITALS: BP 101/44
== END 2024-03-12 15:50 | disposition home or self-care (01) ==
LOC: ER 04:54 → 3RD-ICU 09:28
PROVIDERS: ADMIT Hospitalist; ATTEND Hospitalist
DX: S22.41XA Multiple fractures of ribs, right side, initial encounter for closed fracture (principal); W19.XXXA Unspecified fall, initial encounter; N39.0 Urinary tract infection, site not specified; D64.9 Anemia, unspecified; K59.00 Constipation, unspecified; G35 Multiple sclerosis; E55.9 Vitamin D deficiency, unspecified; J98.11 Atelectasis; R53.1 Weakness; E86.0 Dehydration; F17.210 Nicotine dependence, cigarettes, uncomplicated; Z88.0 Allergy status to penicillin; Z88.2 Allergy status to sulfonamides; Z91.041 Radiographic dye allergy status; Z91.199 Patient's noncompliance with other medical treatment and regimen due to unspecified reason
CPT/HCPCS: 93005 ×2; 87088; 85025 ×2; 81001; 87086; 80048; 36415 ×2; 86900; 83735 ×2; 86850; 84100; 85610; 80061; 86901; 80076; 86920 ×2; 84443; 87077; 87186; 84484; 82728; 83690; 83540; 80053; 82306; 83880; 70450; 71250; 72125; 71045 ×2; 94640; 96375; 96374; 99285; J2916 ×2; J7613 ×2; J7644 ×2; C9113; J3010; J2270 ×2; J2405; J7050 ×2; J7040; J0696 ×2; G0378 ×3; J1650

== ENCOUNTER 2024-03-17 15:45 | Inpatient (IN) | payer OTHER ==
[2024-03-17] MEDS ORDERED: ONDANSETRON 4 MG/2 ML VIAL ONE (16:33)
[2024-03-17] MEDS ORDERED: MORPHINE 4 MG/ML SYR ONE (16:34)
[2024-03-17 17:04] LABS: Absolute Basophils 0.1 K/uL (0-0.5); Absolute Eosinophils 0.2 K/uL (0-0.5); Absolute Lymphocytes (CBC) 1.3 K/uL (0.7-4.9); Absolute Monocytes 0.5 K/uL (0.1-1.3); Basophils % 1.4 % (0-1.3); Eosinophils % 2.5 % (0-4.4); Hematocrit 30.4 % (36.0-45.0); Hemoglobin 8.9 g/dL (12.0-15.0); Lymphocytes % 14.3 % (15.3-44.8); MCH 18.9 pg (27.0-35.0); MCHC 29.2 g/dL (32.0-36.0); MCV 64.5 fL (80-100); MPV 8.2 fL (7.6-11.3); Monocytes % 5.7 % (3.3-12.3); Neutrophils % 76.1 % (41.7-73.7); Nucleated Red Blood Cells % 0.3 % (0-0); Platelets 555 thou/uL (152-406); RBC Red Blood Cell Count 4.71 M/uL (3.86-4.86); Red Cell Distribution Width 21.2 % (12.1-15.2)
[2024-03-17 17:05] LABS: Anisocytosis 1+; Blood Morphology Comment NOTED (NOT SEEN); Hypochromasia 2+; Microcytosis 2+; Platelet Estimate INCR; Platelets, Giant PRESENT; White Blood Cell Scan OK (OK)
[2024-03-17 17:24] LABS: AST/SGOT 19 U/L (15-37); Albumin/Globulin Ratio 0.8 (1.1-1.8); Alkaline Phosphatase 144 U/L (45-117); Anion Gap 10.2 mEq/L (5.0-15.0); BUN Blood Urea Nitrogen 16 mg/dL (7-18); Bicarbonate 29 mEq/L (21-32); Bilirubin Direct 0.2 mg/dL (0-0.2); Bilirubin Indirect, Calculated 0.3 mg/dL (0.2-0.8); Bilirubin Total 0.5 mg/dL (0.2-1.0); Globulin 3.9 g/dL (2.3-3.5); Glomerular Filtration Rate 76 ml/min (=/>90); Glucose Level 99 mg/dL (74-106); Magnesium 2.6 mg/dL (1.6-2.4); Potassium 3.2 mEq/L (3.5-5.1); Protein, Total 6.9 g/dL (6.4-8.2); Sodium Level 138 mEq/L (136-145); Troponin High Sensitivity 7.1 pg/mL (<58.9)
[2024-03-17 17:26] LABS: ALT/SGPT < 14 U/L (13-56)
--- NOTE | 2024-03-17 18:11 | RAD REPORT ---
EXAM DESCRIPTION: RAD - Chest Single View - 03/17/2024 5:49 pm CLINICAL HISTORY: CHEST PAIN COMPARISON: Chest Single View dated 03/12/2024; Chest Single View dated 03/11/2024; Chest Single View dated 03/09/2024; Chest Single View dated 10/11/2022; Head C Spine Cap Wo Con dated 03/11/2024 FINDINGS: Lines: None. Lungs: The right lung base is obscured but similar. Pleural: Blunted costophrenic angles bilaterally which is chronic. Cardiac: Cardiomegaly. Mediastinum: Within normal limits. Bones: No acute fractures. Remote left-sided rib fractures. Other: None IMPRESSION: Similar obscuration of the right lung base could reflect atelectasis. Chronic blunting a t the costophrenic angles. No new acute process identified.
--- NOTE | 2024-03-17 18:37 | EDPHYS ---
Physician Documentation [facility] Name: Sejal Mcnally Age: 73 yrs Sex: Female : 1950 Arrival Date: 03/17/2024 Time: 15:45 Bed 6 Private MD: ED Physician Timo Echols HPI: 03/17 16:48 This 73 yrs old Female presents to ER via Wheelchair with complaints of Chest Pain. rt 16:48 Patient presents to the ED with chest pain. The patient was discharged about 5 days ago rt for 6 rib fractures. States that the pain is consistent with that. The pain has worsened. Denies other acute complaints this time, symptoms are moderate in severity, no other aggravating alleviating factors.. Historical: - Allergies: 15:51 Iodine; ll1 15:51 PENICILLINS; ll1 15:51 Sulfa (Sulfonamide Antibiotics); ll1 - PMHx: 15:51 abdominal hernia; Multiple Sclerosis; ll1 - Immunization history:: Adult Immunizations up to date. - Infectious Disease History:: Denies. - Social history:: Smoking status: Patient reports the use of cigarette tobacco products, smokes one pack cigarettes per day. - Family history:: not pertinent. ROS: 16:48 Constitutional: Negative for fever, chills, and weight loss, Respiratory: Negative for rt shortness of breath, cough, wheezing, and pleuritic chest pain, Abdomen/GI: Negative for abdominal pain, nausea, vomiting, diarrhea, and constipation, MS/Extremity: Negative for injury and deformity, Skin: Negative for injury, rash, and discoloration, Neuro: Negative for headache, weakness, numbness, tingling, and seizure, 16:48 Cardiovascular: Positive for chest pain, Negative for edema, Exam: 16:48 Constitutional: This is a well developed, well nourished patient who is awake, alert, rt and in no acute distress. Head/Face: Normocephalic, atraumatic. Chest/axilla: Normal chest wall appearance and motion. Nontender with no deformity. No lesions are appreciated. Cardiovascular: Regular rate and rhythm with a normal S1 and S2. No gallops, murmurs, or rubs. Normal PMI, no JVD. No pulse deficits. Skin: Warm, dry with normal turgor. Normal color with no rashes, no lesions, and no evidence of cellulitis. MS/ Extremity: Pulses equal, no cyanosis. Neurovascular intact. Full, normal range of motion. Neuro: Awake and alert, GCS 15, oriented to person, place, time, and situation. Cranial nerves II-XII grossly intact. Motor strength 5/5 in all extremities. Sensory grossly intact. Cerebellar exam normal. Normal gait. 16:48 ECG was reviewed by the Attending Physician. 16:48 Abdomen/GI: Large ventral hernia noted, no tenderness, Vital Signs: 15:52 BP 96 / 64; Pulse 91; Resp 17; Temp 97; Pulse Ox 97% ; Height 4 ft. 11 in. ; Pain 10/10;ll1 17:00 BP 118 / 66; Pulse 83; Resp 19 S; Pulse Ox 97% on R/A; kc6 17:48 BP 114 / 77; Pulse 81; Resp 18 S; Pulse Ox 97% on R/A; kc6 19:00 BP 116 / 69; Pulse 88; Resp 20 S; Pulse Ox 97% on R/A; jw7 20:00 BP 117 / 87; Pulse 77; Resp 18 S; Pulse Ox 98% on R/A; jw7 15:52 Pain Scale: Adult ll1 MDM: 16:25 Patient medically screened. rt 18:36 Differential diagnosis: Rib fracture, pneumothorax, pneumonia. Data reviewed: vital rt signs, nurses notes, lab test result(s), EKG, radiologic studies. Consideration of Admission/Observation Patient was admitted/placed on observation. Management of patient was discussed with the following: Hospitalist: Agrees to admit. I considered the following discharge prescriptions or medication management in the emergency department Medications were administered in the Emergency Department. See MAR. Independent interpretation of the following test(s) in the Emergency Department X-Ray: My interpretation is No pneumothorax seen on interpretation of x-ray images. Care significantly affected by the following chronic conditions: MS. Counseling: I had a detailed discussion with the patient and/or guardian regarding the historical points, exam findings, and any diagnostic results supporting the discharge/admit diagnosis, lab results, radiology results, the need for further work-up and treatment in the hospital. Response to treatment: the patient's symptoms have mildly improved after treatment. 03/17 16:31 Order name: Basic Metabolic Panel; Complete Time: 17:31 rt 03/17 16:31 Order name: CBC with Diff; Complete Time: 17:31 rt 03/17 16:31 Order name: LFT's; Complete Time: 17:31 rt 03/17 16:31 Order name: Magnesium; Complete Time: 17:31 rt 03/17 16:31 Order name: Troponin HS; Complete Time: 17:31 rt 03/17 17:06 Order name: CBC Smear Scan; Complete Time: 17:31 EDMS 03/17 18:51 Order name: Urinalysis w/ reflexes EDMS 03/17 16:31 Order name: XRAY Chest (1 view); Complete Time: 18:17 rt 03/17 19:05 Order name: Thorax Wo Con; Complete Time: 20:01 EDMS 03/17 16:31 Order name: Cardiac monitoring; Complete Time: 16:58 rt 03/17 16:31 Order name: EKG - Nurse/Tech; Complete Time: 16:35 rt 03/17 16:31 Order name: IV Saline Lock; Complete Time: 16:58 rt 03/17 16:31 Order name: Labs collected and sent; Complete Time: 16:58 rt 03/17 16:31 Order name: O2 Per Protocol; Complete Time: 16:32 rt 03/17 16:31 Order name: O2 Sat Monitoring; Complete Time: 16:32 rt EC:48 Rate is 94 beats/min. Rhythm is regular, Normal Sinus Rhythm with No ectopy. QRS [place] rt is Normal. ME interval is normal. QRS interval is normal. QT interval is normal. No Q waves. Clinical impression: NSR w/ Non-specific ST/T Changes. Administered Medications: 16:58 Drug: morphine IVP or IV 4 mg IVP once over 4 mins Route: IVP; Infused Over: 4 mins; kc6 Site: left forearm; 17:56 Follow up: Response: No adverse reaction; Pain is decreased; RASS: Alert and Calm (0) [facility] 16:58 Drug: Ondansetron IVP 4 mg IVP once; over 2 minutes Route: IVP; Site: left forearm; kc6 17:56 Follow up: Response: No adverse reaction kc6 Disposition Summary: 03/17/24 18:36 Hospitalization Ordered Notes: Hospitalization Status: Observation rt Provider: Amandeep Shirley rt Location: Telemetry/[facility] (observation) rt Condition: Stable rt Problem: an ongoing problem rt Symptoms: have improved rt Bed/Room Type: Standard rt Room Assignment: 409(03/17/24 19:12) sp Diagnosis - Multiple rib fractures rt Forms: - Medication Reconciliation Form rt - SBAR form rt - Leadership Thank You Letter rt Signatures: Dispatcher [employer] EDMS Chela Vallejo Lynsay, RN RN ll1 Marilee Harden RN RN kc6 Timo Echols MD MD rt Corrections: (The following items were deleted from the chart) 19:05 18:52 Thorax W/ Con ordered. EDMS EDMS 19:12 18:36 rt sp
--- NOTE | 2024-03-17 18:37 | ER ---
Nurse's Notes [facility] Name: Sejal Mcnally Age: 73 yrs Sex: Female : 1950 Arrival Date: 03/17/2024 Time: 15:45 Bed 6 Private MD: Diagnosis: Multiple rib fractures Presentation: 03/17 15:52 Chief complaint: Patient states: CP R side and center since breaking her ribs. ll1 Coronavirus screen: Client denies travel out of the [place] in the last 14 days. At this time, the client does not indicate any symptoms associated with coronavirus-19. Ebola Screen: Patient denies travel to an Ebola-affected area in the 21 days before illness onset. Initial Sepsis Screen: Does the patient meet any 2 criteria? No. Patient's initial sepsis screen is negative. Does the patient have a suspected source of infection? No. Patient's initial sepsis screen is negative. Risk Assessment: Do you want to hurt yourself or someone else? Patient reports no desire to harm self or others. 15:52 Method Of Arrival: Wheelchair ll1 15:52 Acuity: NADINE 3 ll1 Triage Assessment: 15:52 General: Appears distressed, uncomfortable, Behavior is calm, cooperative, appropriate ll1 for age. Pain: Complains of pain in chest Quality of pain is described as aching, tender. Cardiovascular: Reports chest pain. Historical: - Allergies: 15:51 Iodine; ll1 15:51 PENICILLINS; ll1 15:51 Sulfa (Sulfonamide Antibiotics); ll1 - PMHx: 15:51 abdominal hernia; Multiple Sclerosis; ll1 - Immunization history:: Adult Immunizations up to date. - Infectious Disease History:: Denies. - Social history:: Smoking status: Patient reports the use of cigarette tobacco products, smokes one pack cigarettes per day. - Family history:: not pertinent. Screenin:59 [facility] ED Fall Risk Assessment (Adult) History of falling in the last 3 months, kc6 including since admission Yes- fall prone (multiple falls) (3 pts) Confusion or Disorientation No (0 pts) Intoxicated or Sedated No (0 pts) Impaired Gait Yes (1 pt) Mobility Assist Device Used Yes (1 pt) Altered Elimination No (0 pt) Score/Fall Risk Level 3 or more points = High Risk. Abuse screen: Denies threats or abuse. Denies injuries from another. Nutritional screening: No deficits noted. Tuberculosis screening: No symptoms or risk factors identified. Assessment: 16:59 General: Appears in no apparent distress. uncomfortable, slender, Behavior is kc6 cooperative, anxious. Pain: Complains of pain in chest Pain does not radiate. Pain began 2-3 days ago. Is continuous. Neuro: Level of Consciousness is awake, alert, obeys commands, Oriented to person, place, time, situation, Appropriate for age. Cardiovascular: Reports chest pain, Heart tones S1 S2 present Capillary refill < 3 seconds Rhythm is atrial fibrillation. Respiratory: Airway is patent Trachea midline Respiratory effort is even, unlabored, Respiratory pattern is regular, symmetrical. GI: No signs and/or symptoms were reported involving the gastrointestinal system. : No signs and/or symptoms were reported regarding the genitourinary system. EENT: No signs and/or symptoms were reported regarding the EENT system. Derm: No signs and/or symptoms reported regarding the dermatologic system. Skin is intact, is healthy with good turgor, Skin is pink, warm \T\ dry. Musculoskeletal: No signs and/or symptoms reported regarding the musculoskeletal system. Circulation, motion, and sensation intact. Capillary refill < 3 seconds, Range of motion: intact in all extremities. 17:48 Reassessment: Patient appears in no apparent distress at this time. No changes from kc6 previously documented assessment. Patient and/or family updated on plan of care and expected duration. Pain level reassessed. Patient is alert, oriented x 3, equal unlabored respirations, skin warm/dry/pink. 18:48 Reassessment: Patient appears in no apparent distress at this time. No changes from kc6 previously documented assessment. Patient and/or family updated on plan of care and expected duration. Pain level reassessed. Patient is alert, oriented x 3, equal unlabored respirations, skin warm/dry/pink. 19:20 General: Appears in no apparent distress. comfortable, Behavior is calm, cooperative. jw7 Pain: Complains of pain in chest Pain does not radiate. Pain began 2-3 days ago. Is continuous. Neuro: Level of Consciousness is awake, alert, obeys commands, Oriented to person, place, time, situation, Appropriate for age. Cardiovascular: Heart tones S1 S2 present Capillary refill < 3 seconds Clubbing of nail beds is absent JVD is absent Patient's skin is warm and dry. Rhythm is irregular. Respiratory: Airway is patent Trachea midline Respiratory effort is even, unlabored, Respiratory pattern is regular, symmetrical. GI: No signs and/or symptoms were reported involving the gastrointestinal system. : No signs and/or symptoms were reported regarding the genitourinary system. EENT: No signs and/or symptoms were reported regarding the EENT system. Derm: Skin is intact, is healthy with good turgor, Skin is dry, Skin is normal, Skin temperature is warm. Musculoskeletal: Circulation, motion, and sensation intact. Range of motion: intact in all extremities. 20:00 Reassessment: Patient appears in no apparent distress at this time. No changes from jw7 previously documented assessment. Patient and/or family updated on plan of care and expected duration. Pain level reassessed. Patient is alert, oriented x 3, equal unlabored respirations, skin warm/dry/pink. Vital Signs: 15:52 BP 96 / 64; Pulse 91; Resp 17; Temp 97; Pulse Ox 97% ; Height 4 ft. 11 in. ; Pain 10/10;ll1 17:00 BP 118 / 66; Pulse 83; Resp 19 S; Pulse Ox 97% on R/A; kc6 17:48 BP 114 / 77; Pulse 81; Resp 18 S; Pulse Ox 97% on R/A; kc6 19:00 BP 116 / 69; Pulse 88; Resp 20 S; Pulse Ox 97% on R/A; jw7 20:00 BP 117 / 87; Pulse 77; Resp 18 S; Pulse Ox 98% on R/A; jw7 15:52 Pain Scale: Adult ll1 Vitals: 17:00 Cardiac Rhythm Assessment Atrial fibrillation. kc6 ED Course: 15:45 Patient arrived in ED. im 15:52 Triage completed. ll1 16:00 Arm band placed on. ll1 16:01 Timo Echols MD is Attending Physician. rt 16:22 Patient placed in an exam room, on a stretcher. ll1 16:30 Marilee Harden RN is Primary Nurse. kc6 16:59 Patient has correct armband on for positive identification. Placed in gown. Bed in low kc6 position. Call light in reach. Side rails up X2. monitor technician on. Pulse ox on. NIBP on. Door closed. Noise minimized. Lights dimmed. Warm blanket given. Pillow given. 16:59 Inserted saline lock: 24 gauge in left forearm, using aseptic technique. Blood kc6 collected. 17:51 XRAY Chest (1 view) In Process Unspecified. EDMS 18:35 Amandeep Shirley MD is Hospitalizing Provider. rt 19:00 Report given to No Akers RN \T\ Katlin Shoemaker RN. kc6 19:15 Provided Education on: Proper use of call light. jw7 19:21 Thorax Wo Con In Process Unspecified. EDMS 20:06 O2 via RA. jw7 20:06 No provider procedures requiring assistance completed. jw7 20:07 Patient admitted, IV remains in place. jw7 Administered Medications: 16:58 Drug: morphine IVP or IV 4 mg IVP once over 4 mins Route: IVP; Infused Over: 4 mins; kc6 Site: left forearm; 17:56 Follow up: Response: No adverse reaction; Pain is decreased; RASS: Alert and Calm (0) kc6 16:58 Drug: Ondansetron IVP 4 mg IVP once; over 2 minutes Route: IVP; Site: left forearm; kc6 17:56 Follow up: Response: No adverse reaction kc6 Medication: 20:06 VIS not applicable for this client. jw7 Outcome: 18:36 Decision to Hospitalize by Provider. rt 20:13 Admitted to Tele accompanied by tech, via stretcher, room 402, jw7 20:13 Condition: stable 20:13 Instructed on the need for admit, Demonstrated understanding of instructions, 20:13 Patient left the ED. jw7 Signatures: Dispatcher [employer] EDMS Favian Sexton RN RN ll1 Katlin Shoemaker RN RN jw7 Marilee Harden RN RN kc6 Timo Echols MD MD rt Madeline Shah
[2024-03-17] MEDS ORDERED: ALBUTEROL 2.5 MG/3 ML NEB SOL NEB PRN (18:46)
[2024-03-17] MEDS ORDERED: ACETAMINOPHEN 325 MG TABLET PO PRN (18:46)
[2024-03-17] MEDS ORDERED: IPRATROPIUM BROM 0.5MG/2.5ML NEB PRN (18:46)
[2024-03-17] MEDS ORDERED: ONDANSETRON 4 MG/2 ML VIAL IV PRN (18:50)
--- NOTE | 2024-03-17 18:53 | P.HP ---
Certification for Inpatient Patient admitted to: Inpatient With expected LOS: >2 Midnights Practitioner: I am a practitioner with admitting privileges, knowledge of patient current condition, hospital course, and medical plan of care. Services: Services provided to patient in accordance with Admission requirements found in Title 42 Section 412.3 of the Code of Federal Regulations Patient History Date of Service: 03/17/24 Reason for admission: Chest Pain History of Present Illness: 73 yrs old Female with past medical history of multiple sclerosis not on any medications who was recently admitted here in the hospital for history of fall. She was found to have Right right anterior third rib and fifth through ninth rib fractures without underlying pulmonary contusion or pneumothorax. Patient was discharged home at that time who came back to the ER with worsening of chest pain. Patient is located in the right side of the chest worse with movements or activity. Denies any nausea vomiting or diarrhea. No shortness of breath.. Denies any hemoptysis No fever or chills. No cough. Patient was assessed in the ER and is admitted for further management Allergies Iodinated Contrast Media Allergy (Verified 03/11/24 08:35) Penicillins Allergy (Verified 03/11/24 08:35) Sulfa (Sulfonamide Antibiotics) Allergy (Verified 03/11/24 08:35) Home medications list reviewed: Yes Home Medications: Aspirin [Aspirin EC 81 MG] 81 mg PO DAILY #90 tab 03/12/24 Cefpodoxime Proxetil [Vantin] 200 mg PO BID #20 tab 03/12/24 Iron/Vitc/B12/B6/E/FA/If/Senna [Iro-Plex Caplet] 1 each PO DAILY #90 tab 03/12/24 Tramadol HCl [Ultram] 50 mg PO QID 5 Days #20 tab 03/12/24 Vitamin D [Drisdol*] 50,000 unit PO Q7D@0900 #12 cap 03/12/24 - Past Medical/Surgical History Past Medical History: Reviewed- Non-Contributory -: MS -: Ventral hernia Past Surgical History: Reviewed- Non-Contributory -: C/S x 7 -: Tonsillectomy -: Hernia repair -: Appendectomy -: Skin graft to left finger Psychosocial/ Personal History: Lives at home with her , barely gets out of bed, no assistive devices, states she has not seen a doctor in over a year - Family History Family History: Reviewed- Non-Contributory - Social History Smoking Status: Never smoker Alcohol use: No CD- Drugs: No Caffeine use: Yes Review of Systems 10-point ROS is otherwise unremarkable Physical Examination - Vital Signs Temperature: 98.2 F Blood Pressure: 138/82 Pulse: 78 Respirations: 18 Pulse Ox (%): 94 - Physical Exam General: Alert, Oriented x3, Mild distress HEENT: Atraumatic, Normocephalic Neck: Supple, 2+ carotid pulse no bruit Respiratory: Diminished, Crackles/rales Cardiovascular: No edema, Regular rate/rhythm, Normal S1 S2 Capillary refill: <2 Seconds Gastrointestinal: Soft and benign, W/out hepatosplenomegaly, No ascites Musculoskeletal: No clubbing, No swelling Integumentary: No rashes, No breakdown Neurological: Normal speech, Normal strength at 5/5 x4 extr, Normal tone, Cranial nerves 3-12 intact, Normal reflexes 2+ Lymphatics: No axilla or inguinal lymphadenopathy - Studies Laboratory Data (last 24 hrs) 03/17/24 03/17/24 16:56 16:56 WBC 9.20 Hgb 8.9 L Hct 30.4 L Plt Count 555 H Sodium 138 Potassium 3.2 L BUN 16 Creatinine 0.82 Glucose 99 Magnesium 2.6 H Total Bilirubin 0.5 AST 19 ALT < 14 Alkaline Phosphatase 144 H Imagings Data: IMPRESSION: Small right pleural effusion and mild consolidation in the medial right lung base have developed in the interim. Subacute rib fractures are again noted. The small right effusion and consolidation could be as result of the recent rib fractures with splinting and either atelectasis or early developing pneumonia. No pneumothorax. Assessment and Plan - Problems (Diagnosis) (1) Closed rib fracture Current Visit: Yes Status: Acute Plan: Fall/multiple right rib fractures Pain control I-S Right middle lobe consolidation Started on IV antibiotic with Rocephin and Zithromax To treat off pneumonia anemia ferritin/iron levels Transfuse 2 units PRBC Monitor and trend Iron infusion MS range of motion exercises T,C, DB q 2h while awake Constipation Lactulose GI/VRE prophylaxis Protonix 40mg iv/lovenox GI/DVT prophylaxis Advanced directive full code Discharge Plan: Home Plan to discharge in: 48 Hours - Advance Directives Does patient have a Living Will: No Does patient have a Durable POA for Healthcare: No Time Spent Managing Pts Care (In Minutes): 48
--- NOTE | 2024-03-17 19:57 | RAD REPORT ---
EXAM DESCRIPTION: CT - Thorax Wo Con - 03/17/2024 7:19 pm CLINICAL HISTORY: Pain COMPARISON: Chest Single View dated 03/17/2024; Head C Spine Cap Wo Con dated 03/11/2024 FINDINGS: Chest Wall: No suspicious thyroid nodules or pathologic lymphadenopathy. Lungs: Small area of consolidation medial right lung base likely represent atelectasis but which is n ew from prior. Pleura: Small right pleural effusion. Mediastinum/aramis: No pathologic lymphadenopathy. Pulmonary arteries/Aorta: Limited evaluation without contrast. No aortic aneurysm. Heart: No significant pericardial effusion. Normal heart size. Coronary artery calcifications. Upper abdomen: Benign-appearing low-density lesion the hepatic dome. Bones: Subacute bilateral rib fractures which are nondisplaced. No acute fracture identified. Subacut e nondisplaced sternal fracture. Scoliosis. All CT scans are performed using dose optimization technique as appropriate and may include automated exposure control or mA/KV adjustment according to patient size. IMPRESSION: Small right pleural effusion and mild consolidation in the medial right lung base have d eveloped in the interim. Subacute rib fractures are again noted. The small right effusion and consoli dation could be as result of the recent rib fractures with splinting and either atelectasis or early developing pneumonia. No pneumothorax.
[2024-03-17] MEDS: MORPHINE 4 MG/ML SYR IV PRN (20:52)
[2024-03-17] MEDS ORDERED: LACTULOSE 20 GM/30 ML UCUP PO PRN (21:40)
[2024-03-17] MEDS: CEFTRIAXONE 1,000 MG in NA CHLORIDE 0.9% 50 ML IVPB SCH (22:37)
[2024-03-17] MEDS: AZITHROMYCIN IV 500 MG in NA CHLORIDE 0.9% 250 ML IVPB SCH (22:37)
[2024-03-17 23:30] VITALS: BMI 24.9
[2024-03-17] MEDS: HYDROCODONE/APAP 10/325 TAB PO PRN (23:33)
[2024-03-18] MEDS: DIPHENHYDRAMINE 50 MG/ML VIAL IV ONE (01:45)
[2024-03-18 04:02] LABS: Sqamous Epithelial 20-50 /HPF (None Seen); Urine Bacteria <20 /HPF (<20); Urine Bilirubin NEGATIVE (Negative); Urine Blood Trace (Negative); Urine Clarity Extremely Turbid (Clear); Urine Color Yellow (Yellow); Urine Culture Reflex Order NOT NEEDED; Urine Glucose NEGATIVE (Negative); Urine Ketones NEGATIVE (Negative); Urine Microscopic Reflex YN ORDER UMIC; Urine Mucus 2+ /HPF (None Seen); Urine Nitrite NEGATIVE (Negative); Urine Protein 1+ (Negative); Urine RBC 21-50 /HPF (None Seen); Urine Urobilinogen Normal (Normal); Urine WBC >50 /HPF (<5); Urine pH 5.5 (5.0-7.0)
[2024-03-18] MEDS: ENOXAPARIN 40 MG/0.4 ML SQ SCH (07:29)
--- NOTE | 2024-03-18 08:11 | P.PN ---
Date of Service: 03/18/24 Admitted with fall, rib fractures, incentive spirometer encourage pain level 7 out of 10, as needed analgesia Patient reports she is independent at home, PT eval ordered, Review of Systems 10-point ROS is otherwise unremarkable Physical Examination - Vital Signs Reviewed - Physical Exam General: Alert, Oriented x3, HEENT: Atraumatic, Normocephalic Neck: Supple, 2+ carotid pulse no bruit Respiratory: Diminished, Crackles/rales Cardiovascular: No edema, Regular rate/rhythm, Normal S1 S2 Capillary refill: <2 Seconds Gastrointestinal: Soft and benign, W/out hepatosplenomegaly, No ascites Musculoskeletal: No clubbing, No swelling, moderate generalized weakness Integumentary: No rashes, No breakdown Neurological: Normal speech, Normal tone, Cranial nerves 3-12 intact, Lymphatics: No axilla or inguinal lymphadenopathy Assessment and Plan Fall/multiple right rib fractures Pain control I-S PT to eval for discharge planning Right middle lobe consolidation Started on IV antibiotic with Rocephin and Zithromax To treat off pneumonia anemia ferritin/iron levels Transfuse 2 units PRBC Monitor and trend Iron infusion MS range of motion exercises T,C, DB q 2h while awake Constipation Lactulose GI/VRE prophylaxis Protonix 40mg iv/lovenox Advanced directive full code <Cherrie Hernandez - Last Filed: 03/19/24 09:16> Patient was seen and examined. Events of the last 24 hours have been noted. Spoke with with SANDHYA regarding patient's clinical picture after evaluating and examining the patient independently. I performed a substantial part of the MDM during this patient's care today. I personally made or approved the documented management plan and acknowledge its risk of complications. I agree with the findings and documentation provided in the SANDHYA's notes. <Phill Hebert - Last Filed: 04/05/24 00:57>
[2024-03-18] MEDS ORDERED: ALBUTEROL 2.5 MG/3 ML NEB SOL NEB PRN (12:35)
[2024-03-18] MEDS: DIPHENHYDRAMINE 25 MG TAB/CAP PO ONE (12:37)
--- NOTE | 2024-03-18 13:04 | EKG ---
Test Date: 2024-03-17 Test Time: 15:58:[address] Maintenance Supervisor: ARTEMIO MEASUREMENT RESULTS: Intervals: Rate: 94 MN: 136 QRSD: 78 QT: 354 QTc: 442 Wayne: P: MN: 136 QRS: -13 T: 102 INTERPRETIVE STATEMENTS: Sinus rhythm with premature supraventricular complexes ST & T wave abnormality, consider lateral ischemia Abnormal ECG Compared to ECG 03/11/2024 06:34:07 Possible ischemia now present ST (T wave) deviation still present Electronically Signed On 03-18-24 13:02:58 CDT by Sonny Lee
[2024-03-18] MEDS ORDERED: DIPHENHYDRAMINE 25 MG TAB/CAP PO PRN (13:16)
[2024-03-18 14:57] LABS: Anion Gap 8.5 mEq/L (5.0-15.0); Magnesium 2.4 mg/dL (1.6-2.4); Potassium 3.5 mEq/L (3.5-5.1)
[2024-03-18] MEDS: POTASSIUM CL SA 10 MEQ TAB PO ONE (16:51)
[2024-03-19 06:58] LABS: Anion Gap 9.2 mEq/L (5.0-15.0); Potassium 3.2 mEq/L (3.5-5.1)
--- NOTE | 2024-03-19 09:21 | P.PN ---
Date of Service: 03/19/24 Reports is primary caregiver, admitted for fall, rib fractures, incentive spirometer She insists on going home, she has been refusing PT, ecouraged participation Review of Systems 10-point ROS is otherwise unremarkable Physical Examination - Vital Signs Reviewed - Physical Exam General: Alert, Oriented x3, afebrile Neck: Supple, 2+ carotid pulse no bruit Respiratory: Equal unlabored, diminished in the bases Cardiovascular: No edema, Regular rate/rhythm, Normal S1 S2 Gastrointestinal: Soft and benign, nontender Musculoskeletal: moderate generalized weakness Integumentary: No rashes, No breakdown Neurological: Normal speech, Normal tone, Cranial nerves 3-12 intact, Assessment and Plan Fall/multiple right rib fractures Pain control, hydrocodone I-S PT to eval for discharge planning encouraged participation w PT pt insist on going home w [facility] Right middle lobe consolidation Started on IV antibiotic with Rocephin and Zithromax, Nebs Hypokalemia Trend electrolytes replete PRN microcytic anemia ferritin/iron levels Transfuse 2 units PRBC HH trend Iron infusion MS range of motion exercises T,C, DB q 2h while awake Constipation Lactulose added GI/VRE prophylaxis Protonix 40mg iv/lovenox Advanced directive full code <Cherrie Hernandez - Last Filed: 03/20/24 08:39> Patient was seen and examined. Events of the last 24 hours have been noted. Spoke with with SANDHYA regarding patient's clinical picture after evaluating and examining the patient independently. I performed a substantial part of the MDM during this patient's care today. I personally made or approved the documented management plan and acknowledge its risk of complications. I agree with the findings and documentation provided in the SANDHYA's notes. <Phill Hebert - Last Filed: 04/05/24 00:57>
[2024-03-19] MEDS: POTASSIUM CL SA 10 MEQ TAB PO ONE ×3 (09:30→10:01)
[2024-03-19] MEDS: POTASSIUM 25 MEQ EFFERV TAB ONE (11:11)
[2024-03-19] MEDS: POTASSIUM 25 MEQ EFFERV TAB PO ONE (11:26)
[2024-03-20 07:31] LABS: Anion Gap 6.9 mEq/L (5.0-15.0); Potassium 3.9 mEq/L (3.5-5.1)
--- NOTE | 2024-03-20 08:50 | P.DS ---
Admission Date: 03/17/24 Discharge Date: 03/20/24 Reason for Admission: Chest Pain Brief History of Present Illness: 73 yrs old Female with past medical history of multiple sclerosis not on any medications who was recently admitted here in the hospital for history of fall. She was found to have Right right anterior third rib and fifth through ninth rib fractures without underlying pulmonary contusion or pneumothorax. Patient was discharged home at that time who came back to the ER with worsening of chest pain. Patient is located in the right side of the chest worse with movements or activity. Denies any nausea vomiting or diarrhea. No shortness of breath.. Denies any hemoptysis No fever or chills. No cough. Patient was assessed in the ER and is admitted for further management - Physical Exam General: Alert, Oriented x3, HEENT: Atraumatic, Normocephalic Neck: Supple, 2+ carotid pulse no bruit Respiratory: Diminished, equal unlabored Cardiovascular: No edema, Regular rate/rhythm, Normal S1 S2 Capillary refill: <2 Seconds Gastrointestinal: Soft and benign, W/out hepatosplenomegaly, No ascites Musculoskeletal: No clubbing, No swelling Integumentary: No rashes, No breakdown Neurological: Normal speech, Normal strength at 5/5 x4 extr, Normal tone, Lymphatics: No axilla or inguinal lymphadenopathy Hospital Course: 72 year-old patient 73 yrs old Female with past medical history of multiple sclerosis not on any medications who was recently admitted here in the hospital for history of fall. Was noted to have multiple rib fractures, pulmonary contusion without pneumothorax, Condition improved with physical therapy, as needed analgesics, encourage incentive spirometer, Patient tolerating diet, stable for discharge to home with follow-up appointment with primary care physician. Patient insist on discharging home with home health. PROBLEM: Fall plan to discharge home with home health Rib fractures-discharge home with fall precautions, home health with PT, as needed analgesia, lidocaine patch, hydrocodone History of MS supportive care, fall precaution Pneumonia treated with IV antibiotics, while inpatient discharged home on p.o. ciprofloxacin Protein calorie malnutrition-Ensure supplement Rad/Lab/Micro: Radiology IMPRESSION: Small right pleural effusion and mild consolidation in the medial right lung base have developed in the interim. Subacute rib fractures are again noted. The small right effusion and consolidation could be as result of the recent rib fractures with splinting and either atelectasis or early developing pneumonia. No pneumothorax. Continue home medicines as previously prescribed GOAL: Clear understanding of disease process INSTRUCTIONS: Physician Discharge Instructions: -Follow-up with PCP in 1 to 2 weeks -Please call Dr. Hebert at [phone] if any questions regarding hospital stay -Please call nursing station at [phone] if any nursing or medication questions -Return to the emergency room if symptoms worsen Diet: ADA, low sodium Activity: Fall precautions <Cherrie Hernandez - Last Filed: 03/21/24 16:18> Admission Date: 03/17/24 Discharge Date: 03/20/24 Hospital Course: Patient was seen and examined. Events of the last 24 hours have been noted. Spoke with with SANDHYA regarding patient's clinical picture after evaluating and examining the patient independently. I performed a substantial part of the MDM during this patient's care today. I personally made or approved the documented management plan and acknowledge its risk of complications. I agree with the findings and documentation provided in the SANDHYA's notes. <Phill Hebert - Last Filed: 04/05/24 00:58> Disposition: [place] HOME/HOME HEALTH CARE Discharge Condition: GOOD Vital Signs/Physical Exam: Temp Pulse Resp BP Pulse Ox 97.6 F 85 16 116/59 L 95 03/20/24 08:00 03/20/24 08:00 03/20/24 08:00 03/20/24 08:00 03/20/24 08:00 Laboratory Data at Discharge: WBC 9.20 thou/uL (4.3-10.9) 03/17/24 16:56 Hgb 8.9 g/dL (12.0-15.0) L 03/17/24 16:56 Hct 30.4 % (36.0-45.0) L 03/17/24 16:56 Plt Count 555 thou/uL (152-406) H 03/17/24 16:56 Sodium 139 mEq/L (136-145) 03/20/24 07:07 Potassium 3.9 mEq/L (3.5-5.1) D 03/20/24 07:07 BUN 14 mg/dL (7-18) 03/20/24 07:07 Creatinine 0.66 mg/dL (0.55-1.02) 03/20/24 07:07 Glucose 79 mg/dL (74-106) 03/20/24 07:07 Phosphorus 3.9 mg/dL (2.5-4.9) 03/18/24 14:32 Magnesium 2.4 mg/dL (1.6-2.4) 03/18/24 14:32 Total Bilirubin 0.5 mg/dL (0.2-1.0) 03/17/24 16:56 AST 19 U/L (15-37) 03/17/24 16:56 ALT < 14 U/L (13-56) 03/17/24 16:56 Alkaline Phosphatase 144 U/L (45-117) H 03/17/24 16:56 <Cherrie Hernandez - Last Filed: 03/21/24 16:18> Vital Signs/Physical Exam: Temp Pulse Resp BP Pulse Ox 97.8 F 62 16 140/65 95 03/20/24 12:00 03/20/24 12:00 03/20/24 12:00 03/20/24 12:00 03/20/24 08:00 Laboratory Data at Discharge: WBC 9.20 thou/uL (4.3-10.9) 03/17/24 16:56 Hgb 8.9 g/dL (12.0-15.0) L 03/17/24 16:56 Hct 30.4 % (36.0-45.0) L 03/17/24 16:56 Plt Count 555 thou/uL (152-406) H 03/17/24 16:56 Sodium 139 mEq/L (136-145) 03/20/24 07:07 Potassium 3.9 mEq/L (3.5-5.1) D 03/20/24 07:07 BUN 14 mg/dL (7-18) 03/20/24 07:07 Creatinine 0.66 mg/dL (0.55-1.02) 03/20/24 07:07 Glucose 79 mg/dL (74-106) 03/20/24 07:07 Phosphorus 3.9 mg/dL (2.5-4.9) 03/18/24 14:32 Magnesium 2.4 mg/dL (1.6-2.4) 03/18/24 14:32 Total Bilirubin 0.5 mg/dL (0.2-1.0) 03/17/24 16:56 AST 19 U/L (15-37) 03/17/24 16:56 ALT < 14 U/L (13-56) 03/17/24 16:56 Alkaline Phosphatase 144 U/L (45-117) H 03/17/24 16:56 <Phill Hebert - Last Filed: 04/05/24 00:58> Diet: AHA Activity: Fall precautions Time spent managing pt's care (in minutes): 55 <Cherrie Hernandez - Last Filed: 03/21/24 16:18> <Phill Hebert - Last Filed: 04/05/24 00:58> Home Medications: Aspirin [Aspirin EC 81 MG] 81 mg PO DAILY #90 tab 03/12/24 Tramadol HCl [Ultram] 50 mg PO QID 5 Days #20 tab 03/12/24 Cefdinir [Cefdinir*] 300 mg PO BID #10 cap 03/20/24 Hydrocodone 10/APAP 325 [Lovelady 10/325*] 1 tab PO Q6HR #30 tab 03/20/24 Lidocaine 4% Patch [Lidoderm 5% Patch*] 1 patch TD DAILY #30 patch 03/20/24 New Medications: Cefdinir [Cefdinir*] 300 mg PO BID #10 cap Lidocaine 4% Patch [Lidoderm 5% Patch*] 1 patch TD DAILY #30 patch Hydrocodone 10/APAP 325 [Lovelady 10/325*] 1 tab PO Q6HR #30 tab Physician Discharge Instructions: Choice ([facility]) P:[phone] F:[phone] Efax:[phone] Primary care to see the patient in the home: [facility] [address] [place] [address] Front wheeled walker: [address], [place] [address] -SM IV and DC home -Follow-up with PCP in 1 to 2 weeks -Follow-up with Cardiology in 1 to 2 weeks -Please call Dr. Hebert at [phone] if any questions regarding hospital stay -Please call nursing station at [phone] if any nursing or medication questions -Return to the emergency room if symptoms worsen Followup: NONE,NONE [Primary Care Provider] - Sonny Lee MD [ACTIVE - CAN ADMIT] - 1-2 Weeks
[2024-03-20] MEDS ORDERED: POTASSIUM 25 MEQ EFFERV TAB PO SCH (09:00)
[2024-03-20 11:14] VITALS: O2SAT 92
[2024-03-20 12:05] VITALS: BP 140/65; TEMP 97.8
== END 2024-03-20 15:07 | disposition home health service (06) | DRG 183 ==
LOC: ER 15:45 → 4TH 18:46
PROVIDERS: ADMIT Nurse Practitioner; ATTEND Hospitalist
DX: S22.41XA Multiple fractures of ribs, right side, initial encounter for closed fracture (principal); J18.9 Pneumonia, unspecified organism; E46 Unspecified protein-calorie malnutrition; D50.9 Iron deficiency anemia, unspecified; G35 Multiple sclerosis; K59.00 Constipation, unspecified; F17.210 Nicotine dependence, cigarettes, uncomplicated; Z88.0 Allergy status to penicillin; Z88.2 Allergy status to sulfonamides; Z79.82 Long term (current) use of aspirin; Z68.24 Body mass index [BMI] 24.0-24.9, adult; Z90.49 Acquired absence of other specified parts of digestive tract; Z79.899 Other long term (current) drug therapy; Z91.048 Other nonmedicinal substance allergy status; W19.XXXA Unspecified fall, initial encounter; Y93.9 Activity, unspecified; Y92.9 Unspecified place or not applicable; Y99.9 Unspecified external cause status
CPT/HCPCS: 36415; 71045; 71250; 80048; 80076; 81001; 82947; 83735; 84100; 84484; 85025; 93005; 94010; 94760; 96374; 96375; 97116; 97161; 97530; 99285; J0696; J1200; J1650; J2405; J7050

== ENCOUNTER 2024-04-03 10:30 | Emergency (ER) | payer OTHER ==
--- NOTE | 2024-04-03 11:51 | RAD REPORT ---
EXAM DESCRIPTION: CT - Head C Spine Cap Wo Con - 04/03/2024 11:09 am CLINICAL HISTORY: Head and neck injury with chest and abdominal pain status post fall TECHNIQUE: Computed axial tomography of head, neck, chest, abdomen and pelvis obtained. IV and oral contrast not requested. Coronal and sagittal reconstruction performed. All CT scans are performed using dose optimization technique as appropriate and may include automated exposure control or mA/KV adjustment according to patient size. COMPARISON: Due to technical problems prior exams are unavailable FINDINGS: An intracranial bleed is not seen. The ventricles are normal in caliber. An extra-axial fluid collection is not noted. Fluid within the sinuses/mastoids is not seen. A cervical fracture is not seen. No dislocation is noted. The evaluation of mediastinum, aramis, vessels, solid organs and bowel are limited secondary to the lac k of contrast administration. A mediastinal hematoma is not noted. A pleural effusion is not seen. A lung contusion is not present. Subacute right rib fractures The liver,spleen, pancreas, adrenals,kidneys and bladder do not demonstrate an acute traumatic injury 4.2 centimeter hepatic cyst. Gallstones. 7 millimeter calculus right renal pelvis with mild hydroneph rosis. Large right anterolateral ventral hernia contains large and small bowel. No obstruction. Rectum diste nded with stool IMPRESSION: No acute intracranial abnormality is seen. A cervical fracture is not visualized. If the patient continues to have symptoms to suggest intracran ial/spinal cord pathology MRI be recommended No acute traumatic abnormality involving the chest, abdomen or pelvis Subacute right rib fractures 7 millimeter calculus with mild right hydronephrosis
[2024-04-03] MEDS ORDERED: ONDANSETRON 4 MG/2 ML VIAL ONE (12:46)
[2024-04-03] MEDS ORDERED: TAMSULOSIN 0.4 MG SR CAP ONE (12:47)
[2024-04-03] MEDS ORDERED: MAGNESIUM SULFATE 1 gm IVPB 1 GM/100 ML BAG IV ONE (12:47)
[2024-04-03] MEDS ORDERED: MORPHINE 2 MG/ML SYR ONE (12:47)
[2024-04-03 16:21] LABS: PT Prothrombin Time 12.2 SECONDS (9.4-12.5); PTT, Activated Partial Thromb 24.1 SECONDS (24.3-36.9); Protime INR 1.11
[2024-04-03 16:30] LABS: Absolute Basophils 0.1 K/uL (0-0.5); Absolute Lymphocytes (CBC) 1.1 K/uL (0.7-4.9); Absolute Monocytes 0.5 K/uL (0.1-1.3); Absolute Neutrophil 5.7 K/uL (1.8-8.0); Basophils % 0.7 % (0-1.3); Eosinophils % 0.6 % (0-4.4); Hematocrit 32.8 % (36.0-45.0); Hemoglobin 10.3 g/dL (12.0-15.0); Lymphocytes % 15.2 % (15.3-44.8); MCH 22.2 pg (27.0-35.0); MCHC 31.3 g/dL (32.0-36.0); MCV 70.9 fL (80-100); MPV 8.7 fL (7.6-11.3); Monocytes % 6.7 % (3.3-12.3); Neutrophils % 76.8 % (41.7-73.7); Nucleated Red Blood Cells % 0.1 % (0-0); Platelets 288 thou/uL (152-406); RBC Red Blood Cell Count 4.63 M/uL (3.86-4.86)
--- NOTE | 2024-04-03 17:00 | EDPHYS ---
Physician Documentation [facility] Name: Sejal Mcnally Age: 73 yrs Sex: Female : 1950 Arrival Date: 04/03/2024 Time: 10:30 Bed 25 Private MD: ED Physician Abner Zavala HPI: 04/03 13:25 This 73 yrs old Female presents to ER via EMS with complaints of fall, rib pain. rn 13:25 The patient or guardian reports chest pain that is located primarily in the anterior rn chest wall. Onset: The symptoms/episode began/occurred 1 week(s) ago. The chest pain is described as aching. Duration: The patient or guardian reports a single episode. Modifying factors: The symptoms are alleviated by nothing. the symptoms are aggravated by movement, palpation of area. Severity of pain: At its worst the pain was moderate in the emergency department the pain is unchanged. The patient has not experienced similar symptoms in the past. The patient has been recently seen at the [facility] Emergency Department. TearyPatient reports fall a week ago, broke multiple ribs, fell again yesterday and reinjured ribs. Having pain to the right lateral ribs. No vomiting. No shortness of breath.. Historical: - Allergies: 10:46 Iodine; jb4 10:46 PENICILLINS; jb4 10:46 Sulfa (Sulfonamide Antibiotics); jb4 10:46 Azithromycin; jb4 - PMHx: 10:46 abdominal hernia; Multiple Sclerosis; jb4 - Immunization history:: Adult Immunizations up to date. - Infectious Disease History:: Denies. - Social history:: Smoking status: Patient denies any tobacco usage or history of. - Family history:: not pertinent. - Hospitalizations: : No recent hospitalization is reported. ROS: 13:25 Constitutional: Negative for fever, chills, and weight loss, Neck: Negative for injury, rn pain, and swelling, Cardiovascular: Positive for right chest pain Respiratory: Negative for shortness of breath, cough, wheezing, and pleuritic chest pain, Abdomen/GI: Negative for abdominal pain, nausea, vomiting, diarrhea, and constipation, Back: Negative for injury and pain, MS/Extremity: Negative for injury and deformity, Skin: Negative for injury, rash, and discoloration, Neuro: Positive for generalized weakness Exam: 13:25 Constitutional: This is a well developed, well nourished patient who is awake, 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 No pulse deficits. Respiratory: No increased work of breathing, no retractions or nasal flaring. Abdomen/GI: Soft mild right lower abdominal tenderness at site of hernia without discoloration MS/ Extremity: Pulses equal, no cyanosis Neuro: Awake and alert, GCS 15 Vital Signs: 10:52 BP 141 / 82; Pulse 75; Resp 16; Temp 97.6(O); Pulse Ox 100% ; Weight 49.9 kg (R); jb4 Height 4 ft. 11 in. (R); 12:08 BP 132 / 85; Pulse 90; Resp 15; Pulse Ox 98% on R/A; jb4 13:04 BP 103 / 83; Pulse 94; Resp 12; Pulse Ox 96% on R/A; jb4 14:04 BP 118 / 76; Pulse 74; Resp 15; Pulse Ox 99% ; jl7 16:12 BP 113 / 60; Pulse 82; Resp 15; Pulse Ox 97% ; jl7 17:06 BP 119 / 93; Pulse 88; Resp 16; Temp 98; Pulse Ox 95% on R/A; Pain 0/10; ll1 10:52 Body Mass Index 22.22 (49.90 kg, 149.86 cm) jb4 17:06 Pain Scale: Adult ll1 MDM: 10:48 Patient medically screened. rn 16:57 Differential diagnosis: Blunt Chest Trauma Chest Wall Contusion Chest Wall Injury rn Pneumothorax Pulmonary Contusion. Data reviewed: vital signs, nurses notes, lab test result(s), radiologic studies, CT scan, and as a result, I will discharge patient. Counseling: I had a detailed discussion with the patient and/or guardian regarding the historical points, exam findings, and any diagnostic results supporting the discharge/admit diagnosis, lab results, radiology results, the need for outpatient follow up, to return to the emergency department if symptoms worsen or persist or if there are any questions or concerns that arise at home. Response to treatment: the patient's symptoms have mildly improved after treatment, and as a result, I will discharge patient. Special discussion: I discussed with the patient/guardian in detail that at this point there is no indication for admission to the hospital. It is understood, however, that if the symptoms persist or worsen the patient needs to return immediately for re-evaluation. 16:58 ED course: Patient improved, refuses to give urine sample or get urine cath. CT does rn not show any new trauma. Does show 7 mm renal pelvic stone but does not sound like it is the cause of her pain. Review of CAT scan last week shows same stone in same location. Patient reports pain with movement and palpation to the right chest wall. I have personally reviewed all of the results, including but not limited to blood tests and imaging deemed necessary to safely discharge this patient at this time. All results given to and printed out for patient. I personally went over all the results with the patient and answered all questions. Patient will follow-up with PCP and or specialist as discussed. Return precautions given and understood.. 04/03 10:51 Order name: CBC with Diff rn 04/03 10:51 Order name: Basic Metabolic Panel; Complete Time: 16:40 rn 04/03 10:51 Order name: Protime (+inr); Complete Time: 16:40 rn 04/03 10:51 Order name: Ptt, Activated; Complete Time: 16:40 rn 04/03 10:51 Order name: CT Traumagram (Head C Spine CAP wo con); Complete Time: 11:56 rn 04/03 10:51 Order name: IV Start; Complete Time: 12:08 rn 04/03 10:51 Order name: Cardiac monitoring; Complete Time: 11:26 rn 04/03 10:51 Order name: O2 Sat Monitoring; Complete Time: 11:26 rn Administered Medications: 12:58 Drug: Magnesium Sulfate IVPB 1 grams IVPB once over 1 hrs Route: IVPB; Infused Over: 1 jb4 hrs; Site: left hand; 14:00 Follow up: IV Status: Completed infusion jl7 16:11 Follow up: Response: No adverse reaction jl7 12:58 Drug: Flomax PO 0.4 mg PO once Route: PO; jb4 16:11 Follow up: Response: No adverse reaction jl7 12:59 Drug: morphine IVP or IV 2 mg IVP once over 4 mins Route: IVP; Infused Over: 4 mins; jb4 Site: left hand; 16:11 Follow up: Response: No adverse reaction; Pain is decreased jl7 12:59 Drug: Ondansetron IVP 4 mg IVP once; over 2 minutes Route: IVP; Site: left hand; jb4 16:11 Follow up: Response: No adverse reaction jl7 Disposition Summary: 04/03/24 16:59 Discharge Ordered Notes: Location: Home rn Problem: new rn Symptoms: have improved rn Condition: Stable rn Diagnosis - Multiple fractures of ribs, right side - Subacute rn Followup: rn - With: Private Physician - When: As needed - Reason: Recheck today's complaints, Re-evaluation by your physician Discharge Instructions: - Discharge Summary Sheet rn - Kidney Stones rn - Rib Fracture rn - Dietary Guidelines to Help Prevent Kidney Stones rn Forms: - Medication Reconciliation Form rn - Antibiotic recording studio internship - Prescription Opioid Use rn - Patient Portal Instructions rn - Leadership Thank You Letter rn - SBAR form ll1 Signatures: Dispatcher [employer] EDMS Abner Zavala MD MD rn Bryson, James, RN RN jb4 Anita Adame RN jl7 Corrections: (The following items were deleted from the chart) 10:52 10:52 Head C Spine Cap Wo Con+CT.RAD.BRZ ordered. EDMS EDMS 10:52 10:52 CBC+H.LAB.BRZ ordered. EDMS EDMS 10:52 10:52 BASIC METABOLIC PANEL+C.LAB.BRZ ordered. EDMS EDMS 10:52 10:52 Urinalysis+U.LAB.BRZ ordered. EDMS EDMS 10:52 10:52 PROTIME (+INR)+COAG.LAB.BRZ ordered. EDMS EDMS 10:52 10:52 PTT, ACTIVATED+COAG.LAB.BRZ ordered. EDMS EDMS
--- NOTE | 2024-04-03 17:00 | ER ---
Nurse's Notes [facility] Name: Sejal Mcnally Age: 73 yrs Sex: Female : 1950 Arrival Date: 04/03/2024 Time: 10:30 Bed 25 Private MD: Diagnosis: Multiple fractures of ribs, right side-Subacute Presentation: 04/03 10:43 Chief complaint: EMS states: Pt fell 3 weeks ago. Was examined had broken ribs JOHNSON. Per jb4 pt, fell 3 days ago, and is complaining of right sided rib pain. Coronavirus screen: At this time, the client does not indicate any symptoms associated with coronavirus-19. Ebola Screen: No symptoms or risks identified at this time. Initial Sepsis Screen: Does the patient meet any 2 criteria? No. Patient's initial sepsis screen is negative. Does the patient have a suspected source of infection? No. Patient's initial sepsis screen is negative. Risk Assessment: Do you want to hurt yourself or someone else? Patient reports no desire to harm self or others. Onset of symptoms was April 03, 2024. Transition of care: patient was not received from another setting of care. 10:43 Method Of Arrival: EMS: [facility] jb4 10:43 Acuity: NADINE 3 jb4 Historical: - Allergies: 10:46 Iodine; jb4 10:46 PENICILLINS; jb4 10:46 Sulfa (Sulfonamide Antibiotics); jb4 10:46 Azithromycin; jb4 - PMHx: 10:46 abdominal hernia; Multiple Sclerosis; jb4 - Immunization history:: Adult Immunizations up to date. - Infectious Disease History:: Denies. - Social history:: Smoking status: Patient denies any tobacco usage or history of. - Family history:: not pertinent. - Hospitalizations: : No recent hospitalization is reported. Screenin:55 [facility] ED Fall Risk Assessment (Adult) History of falling in the last 3 months, jb4 including since admission Yes- fall prone (multiple falls) (3 pts) Confusion or Disorientation No (0 pts) Intoxicated or Sedated No (0 pts) Impaired Gait Yes (1 pt) Mobility Assist Device Used Yes (1 pt) Altered Elimination No (0 pt) Score/Fall Risk Level 3 or more points = High Risk Oriented to surroundings, Maintained a safe environment. Abuse screen: Denies threats or abuse. Nutritional screening: No deficits noted. Tuberculosis screening: No symptoms or risk factors identified. Assessment: 11:00 General: Appears in no apparent distress. uncomfortable, Behavior is calm, cooperative, jb4 appropriate for age. Pain: Complains of pain in right ribs Pain does not radiate. Pain currently is 6 out of 10 on a pain scale. Neuro: Level of Consciousness is awake, alert, obeys commands, Oriented to person, place, time, situation. Cardiovascular: Patient's skin is warm and dry. Respiratory: Airway is patent Respiratory effort is even, unlabored, Respiratory pattern is regular, symmetrical. GI: No signs and/or symptoms were reported involving the gastrointestinal system. : No signs and/or symptoms were reported regarding the genitourinary system. EENT: No signs and/or symptoms were reported regarding the EENT system. Derm: Skin is intact, Skin is pink, warm \T\ dry. Musculoskeletal: Circulation, motion, and sensation intact. Range of motion: intact in all extremities. 11:55 Reassessment: Patient appears in no apparent distress at this time. Patient and/or jb4 family updated on plan of care and expected duration. Pain level reassessed. Patient is alert, oriented x 3, equal unlabored respirations, skin warm/dry/pink. Attempted to start IV. Pt request a different nurse do it instead. 12:59 Reassessment: Patient appears in no apparent distress at this time. Patient and/or jb4 family updated on plan of care and expected duration. Pain level reassessed. Patient is alert, oriented x 3, equal unlabored respirations, skin warm/dry/pink. 13:57 Reassessment: Pt refused straight cath, attempted clean catch urine but was jl7 unsuccessful, ERD notified. 16:09 Reassessment: Recollect labs sent. jl7 17:06 Reassessment: No changes from previously documented assessment. Patient and/or family ll1 updated on plan of care and expected duration. Pain level reassessed. Patient is alert, oriented x 3, equal unlabored respirations, skin warm/dry/pink. 17:14 Reassessment: [facility] ETA 30 min. ll1 Vital Signs: 10:52 BP 141 / 82; Pulse 75; Resp 16; Temp 97.6(O); Pulse Ox 100% ; Weight 49.9 kg (R); jb4 Height 4 ft. 11 in. (R); 12:08 BP 132 / 85; Pulse 90; Resp 15; Pulse Ox 98% on R/A; jb4 13:04 BP 103 / 83; Pulse 94; Resp 12; Pulse Ox 96% on R/A; jb4 14:04 BP 118 / 76; Pulse 74; Resp 15; Pulse Ox 99% ; jl7 16:12 BP 113 / 60; Pulse 82; Resp 15; Pulse Ox 97% ; jl7 17:06 BP 119 / 93; Pulse 88; Resp 16; Temp 98; Pulse Ox 95% on R/A; Pain 0/10; ll1 10:52 Body Mass Index 22.22 (49.90 kg, 149.86 cm) jb4 17:06 Pain Scale: Adult ll1 ED Course: 10:43 Patient arrived in ED. jb4 10:46 Triage completed. jb4 10:46 Arm band placed on right wrist. jb4 10:48 Abner Zavala MD is Attending Physician. rn 11:11 CT Traumagram (Head C Spine CAP wo con) In Process Unspecified. EDMS 11:55 Patient has correct armband on for positive identification. Bed in low position. Call jb4 light in reach. Side rails up X 1. Provided Education on: plan of care. 12:08 CBC with Diff Sent. jb4 12:08 Basic Metabolic Panel Sent. jb4 12:08 Ptt, Activated Sent. jb4 12:08 Protime (+inr) Sent. jb4 12:59 Paul Ballesteros, RN is Primary Nurse. jb4 17:06 IV discontinued, intact, bleeding controlled, No redness/swelling at site. Pressure ll1 dressing applied, 22 L hand. 17:06 No provider procedures requiring assistance completed. ll1 Administered Medications: 12:58 Drug: Magnesium Sulfate IVPB 1 grams IVPB once over 1 hrs Route: IVPB; Infused Over: 1 jb4 hrs; Site: left hand; 14:00 Follow up: IV Status: Completed infusion jl7 16:11 Follow up: Response: No adverse reaction jl7 12:58 Drug: Flomax PO 0.4 mg PO once Route: PO; jb4 16:11 Follow up: Response: No adverse reaction jl7 12:59 Drug: morphine IVP or IV 2 mg IVP once over 4 mins Route: IVP; Infused Over: 4 mins; jb4 Site: left hand; 16:11 Follow up: Response: No adverse reaction; Pain is decreased jl7 12:59 Drug: Ondansetron IVP 4 mg IVP once; over 2 minutes Route: IVP; Site: left hand; jb4 16:11 Follow up: Response: No adverse reaction jl7 Medication: 11:55 VIS not applicable for this client. jb4 Outcome: 16:59 Discharge ordered by . rn 17:06 Discharged to home via ambulance, ll1 17:06 Condition: stable 17:06 Discharge instructions given to patient, Instructed on discharge instructions, follow up and referral plans. Demonstrated understanding of instructions, follow-up care, 17:15 Patient left the ED. ll1 Signatures: Dispatcher [employer] EDMS Abner Zavala MD MD rn Bryson, James RN RICARDO jb4 Anita Adame RN RN jl7 Favian Sexton RN RN ll1 Corrections: (The following items were deleted from the chart) 11:55 11:55 Reassessment: Patient appears in no apparent distress at this time. Patient jb4 and/or family updated on plan of care and expected duration. Pain level reassessed. Patient is alert, oriented x 3, equal unlabored respirations, skin warm/dry/pink. jb4
[2024-04-03 18:17] LABS: White Blood Cell Scan OK (OK)
[2024-04-03 18:19] LABS: Platelet Estimate ADEQ
[2024-04-03 18:20] LABS: Blood Morphology Comment NOTED (NOT SEEN)
[2024-04-03 18:21] LABS: Anisocytosis 3+; Ovalocytes SLIGHT; Poikilocytosis 1+; Polychromasia 1+; Teardrop Cell FEW
[2024-04-03 21:18] VITALS: BP 119/93; TEMP 98; O2SAT 95
== END 2024-04-03 17:15 | disposition home or self-care (01) ==
LOC: ER 10:30
DX: S22.41XA Multiple fractures of ribs, right side, initial encounter for closed fracture (principal); W18.30XA Fall on same level, unspecified, initial encounter
CPT/HCPCS: 96365; 85025; 80048; 36415; 85610; 85730; 70450; 71250; 72125; 96375; 99284; J3475; J2270; J2405